=== PATIENT | female | born 1975 | race Caucasian/White ===

== ENCOUNTER 2016-09-27 09:32 | Emergency (ER) | payer OTHER ==
[~2016-09-27] VITALS: Ht 162.6 cm; Wt 97.0 kg
[~2016-09-27 09:32] MED LIST: AMIT25TA9 PO; CLON1TAB PO; GLIM4TAB PO; LEVO125T4 PO; TOPA50TA7 PO; ZOLO100T PO
[2016-09-27 09:38] VITALS: BP 141/101; PULSE 108; RESP 17; TEMP 98.4; O2SAT 98
[2016-09-27 11:21] LABS: BLOOD, URINE TRACE (NEG); KETONE, URINE NEG (NEG); NITRITE,URINE NEG (NEG)
[2016-09-27 11:28] LABS: GLUCOSE,URINE 1000 OR GREATER mg/dL (NEG)
[2016-09-27 11:29] LABS: METHOD OF COLLECTION CLEAN CATCH; URINE COLOR YELLOW (YELLW/STRAW)
[2016-09-27 11:30] LABS: COMMENT (UR) CULT NOT INDICATED; CULTURE IF INDICATED CULT NOT INDICATED; RBC, URINE 0-3 /hpf (0-3); SQUAMOUS EPITHELIAL CELL URINE 0-5 /hpf (0-5)
[2016-09-27] MEDS ORDERED: SODIUM CHLOR 0.9% 1000 ML INJ 1,000 ML IV ONE ×2 (11:56→12:26)
--- NOTE | 2016-09-27 11:59 | PD ---
HPI Chief Complaint: Diabetic Time Seen by Provider: 11:50 Travel History International Travel<30 days: No Contact w/Intl Traveler<30days: No Traveled to known affect area: No History of Present Illness HPI 40-year-old female with history of diabetes, on glipizide and insulin, not completely compliant with insulin because she does not like the way it makes her feel, here for evaluation of possible dehydration, possible DKA. The patient states that for the last 2 months she has been feeling as though she is dehydrated. She has been trying to stay hydrated by drinking plenty of water. She was seen in the emergency Department in August 2016, diagnosed with DKA, but told me that she could not stay at that time because she has anxiety and was having a panic attack. She is having some shortness of breath and cough which is been intermittent. No fevers or chills. No nausea or vomiting. No abdominal pain. Bedside glucose at time of assessment was 306. PFSH Past Medical History Hx Anticoagulant Therapy: No Arthritis: No Asthma: Yes (exercise induced) Autoimmune Disease: No Anxiety: Yes Depression: Yes Heart Rhythm Problems: No Cancer: No Cardiovascular Problems: Yes High Cholesterol: Yes Chemotherapy: No Chest Pain: No Congestive Heart Failure: No COPD: No Cerebrovascular Accident: No Diabetes: Yes Diminished Hearing: No Endocrine: Yes Gastrointestinal Disorders: Yes (IBS) GERD: No Glaucoma: No Genitourinary: Yes Headaches: Yes Hepatitis: No Hiatal Hernia: No Hypertension: No Immune Disorder: No Inguinal Hernia: Yes (LEFT HERNIA) Implanted Vascular Access Dvce: No Musculoskeletal: No Neurologic: Yes Psychiatric: Yes Reproductive: Yes Respiratory: Yes Immunizations Current: Yes Migraines: No Renal Failure: No Seizures: No Sleep Apnea: No Thyroid Disease: Yes (hypothyroid) Ulcer: No PNEUMOCCOCAL Vaccine (Year): 2 Menopausal: No : 2 Para: 2 Ovarian Cysts: Yes Past Surgical History Abdominal Surgery: Yes (Hernia repair) AICD: No Arteriovenous Shunt: No Cardiac Surgery: No Section: Yes (x2) Cholecystectomy: Yes Ear Surgery: No Endocrine Surgery: No Eye Surgery: No Genitourinary Surgery: No Gynecologic Surgery: Yes (Endometrial Ablation) Hysterectomy: No Insulin Pump: No Joint Replacement: No Neurologic Surgery: No Oral Surgery: Yes ([place] teeth) Pacemaker: No Thoracic Surgery: No Other Surgery: Yes (HERNIA REPAIR) Social History Alcohol Use: No Tobacco Use: No (Quit 10 years ago) Substance Use: No Allergies-Medications (Allergen,Severity, Reaction): Coded Allergies: Penicillin (Verified Allergy, Severe, NERVOUS FEELING AND SWELLING, ) Shrimp (Verified Allergy, Severe, MOUTH QUINTANILLA, 09/27/16) Sulfa (Verified Allergy, Severe, HIVES AND NERVOUS FEELING, 09/27/16) Ativan (Verified Allergy, Unknown, UNKNOWN, 09/27/16) Morphine (Verified Adverse Reaction, Severe, LETHARGIC, 09/27/16) Reported Meds & Prescriptions Reported Meds & Active Scripts Active Reported Klonopin (Clonazepam) 2 Mg Tab 2 Mg PO DAILY Amitriptyline (Amitriptyline HCl) 25 Mg Tab 25 Mg PO HS Glimepiride 4 Mg Tab 4 Mg PO BID Take with breakfast or first main meal Topamax (Topiramate) 50 Mg Tab 200 Mg PO DAILY Levothyroxine (Levothyroxine Sodium) 125 Mcg Tab 125 Mcg PO DAILY Zoloft (Sertraline HCl) 100 Mg Tab 200 Mg PO DAILY Review of Systems Except as stated in HPI: all other systems reviewed are Neg Physical Exam Narrative GENERAL: Well-developed, well-nourished, overweight, no acute distress. SKIN: Warm and dry. No rash. HEAD: Atraumatic. Normocephalic. EYES: Pupils equal and round. No scleral icterus. No injection or drainage. ENT: Mucous membranes pink and dry. NECK: Trachea midline. No JVD. CARDIOVASCULAR: Regular rate and rhythm. RESPIRATORY: No accessory muscle use. Clear to auscultation. Breath sounds equal bilaterally. GASTROINTESTINAL: Abdomen soft, non-tender, nondistended. MUSCULOSKELETAL: No obvious deformities. No clubbing. No cyanosis. No edema. NEUROLOGICAL: Awake and alert. No obvious cranial nerve deficits. Motor grossly within normal limits. Normal speech. PSYCHIATRIC: Appropriate mood and affect; insight and judgment normal. Data Data Last Documented VS Vital Signs Date Time Temp Pulse Resp B/P Pulse Ox O2 Delivery O2 Flow Rate FiO2 09/27/16 12:02 98 Room Air 09/27/16 09:38 98.4 108 17 141/101 Orders Urinalysis - C+S If Indicated (09/27/16 11:13) Ed Urine Pregnancytest Poc (09/27/16 11:13) Complete Blood Count With Diff (1/26/17 11:56) Comprehensive Metabolic Panel (09/27/16 11:56) Beta Hydroxybutyrate (Acetone) (09/27/16 11:56) Chest, Single Ap (09/27/16 11:56) Ecg Monitoring (09/27/16 11:56) Iv Access Insert/Monitor (09/27/16 11:56) Oximetry (09/27/16 11:56) NPO (09/27/16 11:56) Sodium Chlor 0.9% 1000 Ml Inj (Ns 1000 M (09/27/16 11:56) Sodium Chlor 0.9% 1000 Ml Inj (Ns 1000 M (09/27/16 12:26) Sodium Chloride 0.9% Flush (Ns Flush) (09/27/16 12:00) Beta Hcg (Quant/Titer) (09/27/16 11:56) Influenzae A/B Antigen (09/27/16 11:56) Blood Gas Venous (Vbg) (09/27/16 11:59) Insulin Human Regular Inj (Novolin R Inj (09/27/16 12:45) Labs Laboratory Tests Test 09/27/16 09/27/16 09/27/16 11:08 12:18 12:19 Urine Collection Type CLEAN CATCH Urine Color YELLOW Urine Turbidity CLEAR Urine pH 7.0 Urine Specific [place] 1.032 Urine Protein NEG mg/dL Urine Glucose (UA) 1000 OR GREATER mg/dL Urine Ketones NEG mg/dL Urine Occult Blood TRACE Urine Nitrite NEG Urine Bilirubin NEG Urine Leukocyte Esterase NEG Urine RBC 0-3 /hpf Urine Squamous Epithelial 0-5 /hpf Cells Microscopic Urinalysis Comment CULT NOT INDICATED Urine Collection Time 11:08 White Blood Count 8.3 TH/MM3 Red Blood Count 4.89 MIL/MM3 Hemoglobin 15.5 GM/DL Hematocrit 45.7 % Mean Corpuscular Volume 93.4 FL Mean Corpuscular Hemoglobin 31.6 PG Mean Corpuscular Hemoglobin 33.8 % Concent Red Cell Distribution Width 12.5 % Platelet Count 410 TH/MM3 Mean Platelet Volume 7.4 FL Neutrophils (%) (Auto) 63.4 % Lymphocytes (%) (Auto) 27.6 % Monocytes (%) (Auto) 5.1 % Eosinophils (%) (Auto) 2.7 % Basophils (%) (Auto) 1.2 % Neutrophils # (Auto) 5.3 TH/MM3 Lymphocytes # (Auto) 2.3 TH/MM3 Monocytes # (Auto) 0.4 TH/MM3 Eosinophils # (Auto) 0.2 TH/MM3 Basophils # (Auto) 0.1 TH/MM3 CBC Comment DIFF FINAL Differential Comment Sodium Level 139 MEQ/L Potassium Level 3.7 MEQ/L Chloride Level 105 MEQ/L Carbon Dioxide Level 23.2 MEQ/L Anion Gap 11 MEQ/L Blood Urea Nitrogen 8 MG/DL Creatinine 0.71 MG/DL Estimat Glomerular Filtration 90 ML/MIN Rate Random Glucose 317 MG/DL Calcium Level 8.4 MG/DL Total Bilirubin 0.4 MG/DL Aspartate Amino Transf 12 U/L (AST/SGOT) Alanine Aminotransferase 25 U/L (ALT/SGPT) Alkaline Phosphatase 123 U/L Total Protein 7.5 GM/DL Albumin 3.4 GM/DL Human Chorionic Gonadotropin, LESS THAN 1 Quant MIU/ML B-Hydroxybutyrate 0.66 MMOL/L Blood Gas Puncture Site IV Blood Gas Patient Temperature 98.6 Venous Blood pH 7.35 Venous Blood Partial Pressure 43 mmHg CO2 Venous Blood Partial Pressure 32 mmHg O2 Venous Blood HCO3 23 mmol/L Venous Blood Oxygen Saturation 59 % Venous Blood Oxygen Content 12.5 Vol % Venous Blood Base Excess -1.6 mmol/L Oxygen Delivery Device ROOM AIR Blood Gas Inspired Oxygen 21 % [facility] Medical Decision Making Medical Screen Exam Complete: Yes Emergency Medical Condition: Yes Medical Record Reviewed: Yes Differential Diagnosis DKA, dehydration, hyperglycemia, medication noncompliance, pneumonia, influenza Narrative Course Initial vital signs show heart rate 108, blood pressure 141/101, pulse ox 98% on room air, oral temp of 98.4F. After 1 L of IV fluids patient's heart rate improved to 93. CBC is unremarkable. CMP is remarkable for random glucose 317. Her bicarbonate is 23.2. She is not in DKA. UA shows 1000 or greater glucose, trace occult blood, negative ketones. Beta hCG is negative. Beta hydroxybutyrate is 0.66. Venous blood gas shows a pH of 7.35. Influenza is negative. Chest x-ray: No acute disease. Patient was given 2 L of IV fluids and 6 units of IV insulin. She is resting comfortably. She was made aware of all findings. She is not in DKA. She is stable for discharge home with outpatient follow-up with a primary care physician this week. She was informed on when to return to the emergency department. She verbalizes understanding and agreement with plan. Diagnosis Primary Impression: Hyperglycemia Referrals: Primary Care Physician 3 days Additional Instructions: Follow-up with a primary care physician this week. Take your medications as prescribed. Return to the emergency department for worsening symptoms or any other concerns. Disposition: 01 DISCHARGE HOME Condition: Stable Gurvinder Maki MD Sep 27, 2016 11:59
[2016-09-27] MEDS ORDERED: SODIUM CHLORIDE 0.9% FLUSH 5 ML FLUSH IVF PRN (12:00)
[2016-09-27 12:02] VITALS: O2SAT 98
[2016-09-27] MEDS ORDERED: KLON2TAB PO (12:12)
[2016-09-27 12:22] LABS: BLOOD GAS VENOUS BASE EXCESS -1.6 mmol/L (-2-2); BLOOD GAS VENOUS HCO3 23 mmol/L (22-26); BLOOD GAS VENOUS O2 CONTENT 12.5 Vol % (9.0-17.0); BLOOD GAS VENOUS O2 HGB SAT 59 % (70-76); BLOOD GAS VENOUS PCO2 43 mmHg (44-48); BLOOD GAS VENOUS PO2 32 mmHg (35-40); BLOOD GAS VENOUS pH 7.35 (7.360-7.400); CRITICAL VALUE NO; DRAW SITE IV; FIO2 21 %; OXYGEN DEVICE ROOM AIR; STAT YES; TEMP CORR TO 98.6
[2016-09-27 12:26] LABS: AUTOMATED NEUTROPHIL # 5.3 TH/MM3 (1.8-7.7); BASOPHIL # 0.1 TH/MM3 (0-0.2); BASOPHIL % 1.2 % (0.0-2.0); EOSINOPHIL # 0.2 TH/MM3 (0-0.4); EOSINOPHIL % 2.7 % (0.0-4.0); HEMATOCRIT 45.7 % (35.0-46.0); HEMO FLAGS DIFF FINAL; LYMPH % 27.6 % (9.0-44.0); LYMPHOCYTE # 2.3 TH/MM3 (1.0-4.8); MEAN CELL VOLUME 93.4 FL (80.0-100.0); MEAN CORPUSCULAR HEMOGLOBIN 31.6 PG (27.0-34.0); MEAN CORPUSCULAR HGB CONC 33.8 % (32.0-36.0); MONO % 5.1 % (0.0-8.0); NEUT % 63.4 % (16.0-70.0); PLATELET COUNT 410 TH/MM3 (150-450); RED BLOOD COUNT 4.89 MIL/MM3 (4.00-5.30); RED CELL DISTRIBUTION WIDTH 12.5 % (11.6-17.2); WHITE BLOOD COUNT 8.3 TH/MM3 (4.0-11.0)
[2016-09-27 12:33] LABS: CHLORIDE 105 MEQ/L (98-107); POTASSIUM 3.7 MEQ/L (3.5-5.1); SODIUM (NA) 139 MEQ/L (136-145)
[2016-09-27 12:36] LABS: ANION GAP 11 MEQ/L (5-15); BICARBONATE 23.2 MEQ/L (21.0-32.0)
[2016-09-27 12:37] LABS: BLOOD UREA NITROGEN 8 MG/DL (7-18)
[2016-09-27 12:40] LABS: ALT (GPT) 25 U/L (10-53); AST (GOT) 12 U/L (15-37); GLOMERULAR FILTRATION RATE 90 ML/MIN (>89)
[2016-09-27 12:41] LABS: TOTAL BILIRUBIN ADULT 0.4 MG/DL (0.2-1.0)
[2016-09-27 12:43] LABS: ALKALINE PHOSPHATASE 123 U/L (45-117)
[2016-09-27 12:45] LABS: BETA HCG QUANT LESS THAN 1 MIU/ML (0-5)
[2016-09-27] MEDS ORDERED: INSULIN HUMAN REGULAR 1,000 UNITS/10 ML VIAL IVP ONE (12:45)
[2016-09-27 12:50] LABS: BETA-HYDROXYBUTYRATE 0.66 MMOL/L (0.00-0.39)
--- NOTE | 2016-09-27 12:52 | RADHPO ---
EXAM DATE/TIME: 09/27/2016 12:33 [facility] COMPARISON: CHEST SINGLE AP, February 25, 2016, 17:59. INDICATIONS : Cough, short of breath. MEDICAL HISTORY : None. SURGICAL HISTORY : None. ENCOUNTER: Initial ACUITY: 1 week PAIN SCORE: 0/10 LOCATION: Bilateral chest FINDINGS: Portable AP view of the chest demonstrates a normal-sized cardiac silhouette. No effusion, consolidat ion, or pneumothorax is visualized. The bones and soft tissues demonstrate no acute abnormality. CONCLUSION: No acute cardiopulmonary abnormality is identified. Aftab Kingsley MD on September 27, 2016 at 12:49 Board Certified Radiologist. This report was verified electronically.
[2016-09-27 13:29] VITALS: BP 166/92
[2016-11-07] MEDS ORDERED: ACYC400T PO (14:22)
[2016-11-07] MEDS ORDERED: DIFL150T PO (14:48)
[2016-11-07] MEDS ORDERED: ACYC800T PO (14:49)
[2017-01-04] MEDS ORDERED: DIFL150T PO (12:07)
[2017-01-10] MEDS ORDERED: ACYC800T PO (16:09)
[2017-02-07] MEDS ORDERED: CYCL1TAB29 PO (11:33)
== END 2016-09-27 13:32 | disposition home or self-care (01) ==
LOC: PHED 09:32
DX: E11.65 Type 2 diabetes mellitus with hyperglycemia (principal); F41.8 Other specified anxiety disorders; E78.00 Pure hypercholesterolemia, unspecified; Z79.4 Long term (current) use of insulin; K58.9 Irritable bowel syndrome, unspecified; E03.9 Hypothyroidism, unspecified
CPT/HCPCS: 71010; 80053; 81001; 82010; 82805; 84702; 84703; 85025; 87804; 96361; 96374; 99284; J1815; J7030

== ENCOUNTER 2016-10-05 12:17 | Observation (INO) | payer OTHER ==
[~2016-10-05] VITALS: Ht 162.6 cm; Wt 91.0 kg
[~2016-10-05 12:17] MED LIST changes: -CLON1TAB PO; +KLON2TAB PO
[2016-10-05 12:38] VITALS: BP 164/103; PULSE 101; RESP 18; TEMP 99.1; O2SAT 98
[2016-10-05] MEDS ORDERED: SODIUM CHLOR 0.9% 1000 ML INJ 1,000 ML IV SCH (12:41)
[2016-10-05] MEDS ORDERED: SODIUM CHLORIDE 0.9% FLUSH 5 ML FLUSH IVF PRN (12:45)
--- NOTE | 2016-10-05 12:46 | PD ---
HPI Chief Complaint: Neuro Symptoms/ Deficits Time Seen by Provider: 12:35 Travel History International Travel<30 days: No Contact w/Intl Traveler<30days: No Traveled to known affect area: No History of Present Illness HPI 40-year-old female with history of poorly controlled insulin-dependent diabetes , anxiety, hypothyroidism, hyperlipidemia presents via EMS for evaluation. She reports that this morning at 10:45 AM she was at work at a recycling plant. She reports that she began having a twitching sensation in her right eyelid and left side of her face. She then felt uncoordinated when using her hands to reach out to grab objects. She then felt uncoordinated when trying to walk down some stairs. Symptoms lasted total of 15 minutes and then resolved. She says that she feels normal now. She is concerned that she may have had a TIA or CVA. She's never had these sorts of symptoms before. She does also note that recently her psychiatrist changed her dosing of Topamax from 100 mg BID to 150 mg BID 2 days ago and she is concerned that this could be a side effect of the medication change. She denies any palpitation, chest pain, shortness of breath. Denies any recent illness. She has no other complaints at this time. PFSH Past Medical History Hx Anticoagulant Therapy: No Arthritis: No Asthma: Yes (exercise induced) Autoimmune Disease: No Anxiety: Yes Depression: Yes Heart Rhythm Problems: No Cancer: No Cardiovascular Problems: Yes High Cholesterol: Yes Chemotherapy: No Chest Pain: No Congestive Heart Failure: No COPD: No Cerebrovascular Accident: No Diabetes: Yes Diminished Hearing: No Endocrine: Yes Gastrointestinal Disorders: Yes (IBS) GERD: No Glaucoma: No Genitourinary: Yes Headaches: Yes Hepatitis: No Hiatal Hernia: No Hypertension: No Immune Disorder: No Inguinal Hernia: Yes (LEFT HERNIA) Implanted Vascular Access Dvce: No Musculoskeletal: No Neurologic: Yes Psychiatric: Yes Reproductive: Yes Respiratory: Yes Immunizations Current: Yes Migraines: No Renal Failure: No Seizures: No Sleep Apnea: No Thyroid Disease: Yes (hypothyroid) Ulcer: No PNEUMOCCOCAL Vaccine (Year): 2 Menopausal: No : 2 Para: 2 Ovarian Cysts: Yes Past Surgical History Abdominal Surgery: Yes (Hernia repair) AICD: No Arteriovenous Shunt: No Cardiac Surgery: No Section: Yes (x2) Cholecystectomy: Yes Ear Surgery: No Endocrine Surgery: No Eye Surgery: No Genitourinary Surgery: No Gynecologic Surgery: Yes (Endometrial Ablation) Hysterectomy: No Insulin Pump: No Joint Replacement: No Neurologic Surgery: No Oral Surgery: Yes ([place] teeth) Pacemaker: No Thoracic Surgery: No Other Surgery: Yes (HERNIA REPAIR) Social History Alcohol Use: No Tobacco Use: No (Quit 10 years ago) Substance Use: No Allergies-Medications (Allergen,Severity, Reaction): Coded Allergies: Penicillin (Verified Allergy, Severe, NERVOUS FEELING AND SWELLING, ) Shrimp (Verified Allergy, Severe, MOUTH QUINTANILLA, 09/27/16) Sulfa (Verified Allergy, Severe, HIVES AND NERVOUS FEELING, 09/27/16) Ativan (Verified Allergy, Unknown, UNKNOWN, 09/27/16) Morphine (Verified Adverse Reaction, Severe, LETHARGIC, 09/27/16) Reported Meds & Prescriptions Reported Meds & Active Scripts Active Reported Klonopin (Clonazepam) 2 Mg Tab 2 Mg PO DAILY Amitriptyline (Amitriptyline HCl) 25 Mg Tab 25 Mg PO HS Glimepiride 4 Mg Tab 4 Mg PO BID Take with breakfast or first main meal Topamax (Topiramate) 50 Mg Tab 200 Mg PO DAILY Levothyroxine (Levothyroxine Sodium) 125 Mcg Tab 125 Mcg PO DAILY Zoloft (Sertraline HCl) 100 Mg Tab 200 Mg PO DAILY Review of Systems Except as stated in HPI: all other systems reviewed are Neg Physical Exam Narrative GENERAL: Well-developed well-nourished female in no acute distress SKIN: Warm and dry. HEAD: Atraumatic. Normocephalic. EYES: Pupils equal and round. No scleral icterus. No injection or drainage. ENT: No nasal bleeding or discharge. Mucous membranes pink and moist. NECK: Trachea midline. No JVD. CARDIOVASCULAR: Regular rate and rhythm. No murmur appreciated. RESPIRATORY: No accessory muscle use. Clear to auscultation. Breath sounds equal bilaterally. GASTROINTESTINAL: Abdomen soft, non-tender, nondistended. MUSCULOSKELETAL: No obvious deformities. No clubbing. No cyanosis. No edema. NEUROLOGICAL: Awake and alert. No obvious cranial nerve deficits. Motor grossly within normal limits. Normal speech. Normal finger-nose, heel to sierra. NIHSS 0. PSYCHIATRIC: Appropriate mood and affect; insight and judgment normal. Data Data Last Documented VS Vital Signs Date Time Temp Pulse Resp B/P Pulse Ox O2 Delivery O2 Flow Rate FiO2 10/05/16 12:47 97 Room Air 10/05/16 12:38 18 10/05/16 12:38 99.1 101 164/103 Orders Electrocardiogram (10/05/16 12:41) Prothrombin Time / Inr (Pt) (10/05/16 12:41) Act Partial Throm Time (Ptt) (10/05/16 12:41) Complete Blood Count With Diff (10/05/16 12:41) Basic Metabolic Panel (Bmp) (10/05/16 12:41) Ct Brain W/O Iv Contrast(Rout) (10/05/16 12:41) Ecg Monitoring (10/05/16 12:41) Iv Access Insert/Monitor (10/05/16 12:41) Oximetry (10/05/16 12:41) Blood Glucose (10/05/16 12:41) Sodium Chloride 0.9% Flush (Ns Flush) (10/05/16 12:45) Ed Urine Pregnancytest Poc (10/05/16 12:41) Sodium Chlor 0.9% 1000 Ml Inj (Ns 1000 M (10/05/16 12:41) Magnesium (Mg) (10/05/16 12:41) Insulin Human Regular Inj (Novolin R Inj (10/05/16 14:00) Admit Order (Ed Use Only) (10/05/16 14:51) Labs Laboratory Tests Test 10/05/16 13:06 White Blood Count 10.1 TH/MM3 Red Blood Count 4.95 MIL/MM3 Hemoglobin 16.3 GM/DL Hematocrit 46.4 % Mean Corpuscular Volume 93.7 FL Mean Corpuscular Hemoglobin 32.9 PG Mean Corpuscular Hemoglobin 35.1 % Concent Red Cell Distribution Width 13.3 % Platelet Count 329 TH/MM3 Mean Platelet Volume 8.1 FL Neutrophils (%) (Auto) 60.1 % Lymphocytes (%) (Auto) 29.4 % Monocytes (%) (Auto) 6.1 % Eosinophils (%) (Auto) 2.8 % Basophils (%) (Auto) 1.6 % Neutrophils # (Auto) 6.1 TH/MM3 Lymphocytes # (Auto) 3.0 TH/MM3 Monocytes # (Auto) 0.6 TH/MM3 Eosinophils # (Auto) 0.3 TH/MM3 Basophils # (Auto) 0.2 TH/MM3 CBC Comment DIFF FINAL Differential Comment Prothrombin Time 10.8 SEC Prothromb Time International 1.0 RATIO Ratio Activated Partial 23.4 SEC Thromboplast Time Sodium Level 135 MEQ/L Potassium Level 4.4 MEQ/L Chloride Level 103 MEQ/L Carbon Dioxide Level 21.0 MEQ/L Anion Gap 11 MEQ/L Blood Urea Nitrogen 8 MG/DL Creatinine 0.81 MG/DL Estimat Glomerular Filtration 78 ML/MIN Rate Random Glucose 367 MG/DL Calcium Level 8.8 MG/DL Magnesium Level 2.1 MG/DL MDM Medical Decision Making Medical Screen Exam Complete: Yes Emergency Medical Condition: Yes Medical Record Reviewed: Yes Interpretation(s) EKG sinus rhythm, there are T wave inversions in the anterior and lateral leads. CBC hemoglobin 16.3 otherwise unremarkable BMP glucose [address] brain no acute abnormalities Differential Diagnosis Medication adverse effect, electrolyte abnormality, hypoglycemia, TIA, CVA Narrative Course IV established, basic lab work has been ordered and interpreted, CT of the brain has been ordered. The patient's primary concern is that her symptoms were suggestive of a TIA. She has no residual neurologic symptoms at the time of the examination. Discussed with my attending who agrees with plan of care. The patient's lab work has been reviewed. She is noted be hyperglycemic. She was given IV fluids and a bolus of insulin. She is agreeable to be admitted for observation. Discussed with the residents who are agreeable with admission to Dr. Montano. Procedures EKG Prior to Arrival: Yes Diagnosis Primary Impression: TIA (transient ischemic attack) Qualified Code: G45.9 - Transient cerebral ischemia, unspecified type Admitting Information Admitting Physician Requests: Observation Jamshid Briceño Oct 05, 2016 12:45
[2016-10-05 12:47] VITALS: O2SAT 97
[2016-10-05 13:24] LABS: AUTOMATED NEUTROPHIL # 6.1 TH/MM3 (1.8-7.7); BASOPHIL # 0.2 TH/MM3 (0-0.2); BASOPHIL % 1.6 % (0.0-2.0); EOSINOPHIL # 0.3 TH/MM3 (0-0.4); EOSINOPHIL % 2.8 % (0.0-4.0); HEMATOCRIT 46.4 % (35.0-46.0); HEMO FLAGS DIFF FINAL; LYMPH % 29.4 % (9.0-44.0); MEAN CELL VOLUME 93.7 FL (80.0-100.0); MEAN CORPUSCULAR HEMOGLOBIN 32.9 PG (27.0-34.0); MEAN CORPUSCULAR HGB CONC 35.1 % (32.0-36.0); MONO % 6.1 % (0.0-8.0); NEUT % 60.1 % (16.0-70.0); PLATELET COUNT 329 TH/MM3 (150-450); RED BLOOD COUNT 4.95 MIL/MM3 (4.00-5.30); RED CELL DISTRIBUTION WIDTH 13.3 % (11.6-17.2); WHITE BLOOD COUNT 10.1 TH/MM3 (4.0-11.0)
[2016-10-05 13:36] LABS: PROTHROMBIN TIME - PATIENT 10.8 SEC (9.8-11.6)
[2016-10-05 13:38] LABS: APTT (PATIENT) 23.4 SEC (24.3-30.1)
[2016-10-05 13:46] LABS: MAGNESIUM 2.1 MG/DL (1.5-2.5); POTASSIUM 4.4 MEQ/L (3.5-5.1)
[2016-10-05] MEDS ORDERED: INSULIN HUMAN REGULAR 1,000 UNITS/10 ML VIAL IVP ONE (14:00)
--- NOTE | 2016-10-05 14:30 | RADRPT ---
EXAM DATE/TIME: 10/05/2016 13:36 [facility] COMPARISON: CT BRAIN W/O CONTRAST, December 03, 2010, 18:16. INDICATIONS : Twitching right eyelid and left side of face. RADIATION DOSE: 52.91 CTDIvol (mGy) MEDICAL HISTORY : Cardiovascular disease. Diabetes mellitus type 2. Hypothyroidism. SURGICAL HISTORY : None. ENCOUNTER: Initial ACUITY: 1 day PAIN SCALE: 0/10 LOCATION: cranial TECHNIQUE: Multiple contiguous axial images were obtained of the head. Using automated exposure control and adj ustment of the mA and/or kV according to patient size, radiation dose was kept as low as reasonably a chievable to obtain optimal diagnostic quality images. FINDINGS: CEREBRUM: The ventricles are normal for age. No evidence of midline shift, mass lesion, hemorrhage or acute in farction. No extra-axial fluid collections are seen. POSTERIOR FOSSA: The cerebellum and brainstem are intact. The 4th ventricle is midline. The cerebellopontine angle i s unremarkable. EXTRACRANIAL: The visualized portion of the orbits is intact. SKULL: The calvaria is intact. No evidence of skull fracture. CONCLUSION: No acute disease. No significant change has occurred. Himanshu Frias MD on October 05, 2016 at 14:28 Board Certified Radiologist. This report was verified electronically.
--- NOTE | 2016-10-05 15:16 | PD.AMA ---
Against Medical Advice Note Discharge Disposition: Against Medical Advice Pt Condition on Discharge: Fair AMA Statement Patient Jaylin Ramirez has decided to leave the hospital against medical advice. This patient has the capacity to refuse care and understands the risks of leaving, including permanent disability and/or , and has had an opportunity to ask questions about her condition. The patient has been informed that she may return for care at any time, and follow up has been arranged/ advised. Wolfgang Swan MD R1 Oct 05, 2016 15:16
[2016-10-05 15:26] VITALS: BP 167/90; PULSE 92; RESP 18; O2SAT 98
--- NOTE | 2016-10-05 15:35 | HHI.HP ---
HPI Service Family Medicine Primary Care Physician No Primary Care Physician Admission Diagnosis transient ischemic attack Diagnoses: International Travel<30 Days: No Contact w/Intl Traveler<30days: No Known Affected Area: No History of Present Illness This is a 40-year-old female with past, history consistent of type 2 diabetes, anxiety, hypothyroidism, and hyperlipidemia she presented via EMS to the ED for episode of twitching of the face. She states that she was at work this morning at around 10:45 AM at the [employer] plant when she started having this twitching sensation of her right eye and left side of her face. Then her hands felt uncoordinated and she was unable to grab objects correctly. As she tried to walk away from her workstation she felt very dizzy and unbalanced with poor coordination throughout her body. She said that the symptoms lasted for 15 minutes and then completely resolved. By the time the ambulance arrived she is back to baseline and continued to be baseline even upon arriving the ED. Throughout ED admission at time of evaluation she felt like she was back to normal. She is concerned that she might have had a TIA or CVA, but thinks that she recovered completely. Denies ever having similar symptoms in the past, however recently had her Topamax dose increased to 300 mg a day and thinks that she might be having a side effect from that. At time of admission she decided to leave it the hospital without being admitted, once she was informed that if that was the case she would have to be discharged AMA she then decided she'll stay the night. (Jorge Weiner MD R2) Review of Systems Constitutional: COMPLAINS OF: Dizziness, DENIES: Fever, Weight gain, Weight loss, Change in appetite Eyes: DENIES: Blurred vision, Vision loss, Double Vision Ears, nose, mouth, throat: DENIES: Tinnitus, Hearing loss, Oral lesions, Throat pain, Hoarseness, Running Nose Respiratory: DENIES: Cough, Wheezing, Sputum production, Shortness of breath Cardiovascular: DENIES: Chest pain, Syncope, Dyspnea on Exertion, Lower Extremity Edema Gastrointestinal: DENIES: Abdominal pain, Nausea, Vomiting Genitourinary: DENIES: Urinary frequency, Urinary incontinence Musculoskeletal: DENIES: Joint pain, Stiffness, Joint Swelling, Back pain Integumentary: DENIES: Pruritus, Rash Hematologic/lymphatic: DENIES: Bruising Immunologic/allergic: DENIES: Eczema Neurologic: COMPLAINS OF: Abnormal gait, Localized weakness, Poor Balance, DENIES: Headache, Seizures, Speech Problems, Tremor Psychiatric: DENIES: Anxiety, Depression (Jorge Weiner MD R2) Past Family Social History Past Medical History Type II DM Hypothyroid Anxiety (Panic Disorder) Past Surgical History Cholecystectomy 2 C-sections Hernia repair Endometrial ablation Reported Medications Reported Meds & Active Scripts Active Reported Klonopin (Clonazepam) 2 Mg Tab 2 Mg PO DAILY Amitriptyline (Amitriptyline HCl) 25 Mg Tab 25 Mg PO HS Glimepiride 4 Mg Tab 4 Mg PO BID Take with breakfast or first main meal Topamax (Topiramate) 50 Mg Tab 300 Mg PO DAILY Levothyroxine (Levothyroxine Sodium) 125 Mcg Tab 125 Mcg PO DAILY Zoloft (Sertraline HCl) 100 Mg Tab 200 Mg PO DAILY (Jorge Weiner MD R2) Allergies: Coded Allergies: Penicillin (Verified Allergy, Severe, NERVOUS FEELING AND SWELLING, ) Shrimp (Verified Allergy, Severe, MOUTH QUINTANILLA, 09/27/16) Sulfa (Verified Allergy, Severe, HIVES AND NERVOUS FEELING, 09/27/16) Ativan (Verified Allergy, Unknown, UNKNOWN, 09/27/16) Morphine (Verified Adverse Reaction, Severe, LETHARGIC, 09/27/16) Family History Father with DM, recent CABG, HTN, Necrotizing fascitis Social History [place] in an apartment with 12 year old son Work at [employer], but schooling as registered nurse Pet dog and 2 cats Former smoker 4 cigarettes a day for 10 years Social alcohol once a month Denies illegal drugs (Jorge Weiner MD R2) Physical Exam Vital Signs Vital Signs Date Time Temp Pulse Resp B/P Pulse Ox O2 Delivery O2 Flow Rate FiO2 10/05/16 12:47 97 Room Air 10/05/16 12:38 18 Room Air 10/05/16 12:38 99.1 101 18 164/103 98 Room Air Physical Exam GENERAL: This is a well-nourished, well-developed patient, in no apparent distress. SKIN: No rashes, ecchymoses or lesions. Cool and dry. HEAD: Atraumatic. Normocephalic. No temporal or scalp tenderness. EYES: Pupils equal round and reactive. Extraocular motions intact. No scleral icterus. No injection or drainage. ENT: Nose without bleeding, purulent drainage or septal hematoma. Throat without erythema, tonsillar hypertrophy or exudate. Uvula midline. Airway patent. NECK: Trachea midline. No JVD or lymphadenopathy. Supple, nontender, no meningeal signs. CARDIOVASCULAR: Regular rate and rhythm without murmurs, gallops, or rubs. RESPIRATORY: Clear to auscultation. Breath sounds equal bilaterally. No wheezes , rales, or rhonchi. GASTROINTESTINAL: Abdomen soft, non-tender, nondistended. No hepato-splenomegaly , or palpable masses. No guarding. MUSCULOSKELETAL: Extremities without clubbing, cyanosis, or edema. No joint tenderness, effusion, or edema noted. No calf tenderness. Negative Homans sign bilaterally. NEUROLOGICAL: Awake and alert. Cranial nerves II through XII intact. Motor and sensory grossly within normal limits. Five out of 5 muscle strength in all muscle groups. Normal speech. Normal finger to nose, normal [id number] no cerebral defect signs, sensation intact throughout. Laboratory Laboratory Tests Test 10/05/16 13:06 White Blood Count 10.1 Red Blood Count 4.95 Hemoglobin 16.3 Hematocrit 46.4 Mean Corpuscular Volume 93.7 Mean Corpuscular Hemoglobin 32.9 Mean Corpuscular Hemoglobin 35.1 Concent Red Cell Distribution Width 13.3 Platelet Count 329 Mean Platelet Volume 8.1 Neutrophils (%) (Auto) 60.1 Lymphocytes (%) (Auto) 29.4 Monocytes (%) (Auto) 6.1 Eosinophils (%) (Auto) 2.8 Basophils (%) (Auto) 1.6 Neutrophils # (Auto) 6.1 Lymphocytes # (Auto) 3.0 Monocytes # (Auto) 0.6 Eosinophils # (Auto) 0.3 Basophils # (Auto) 0.2 CBC Comment DIFF FINAL Differential Comment Prothrombin Time 10.8 Prothromb Time International 1.0 Ratio Activated Partial 23.4 Thromboplast Time Sodium Level 135 Potassium Level 4.4 Chloride Level 103 Carbon Dioxide Level 21.0 Anion Gap 11 Blood Urea Nitrogen 8 Creatinine 0.81 Estimat Glomerular Filtration 78 Rate Random Glucose 367 Calcium Level 8.8 Magnesium Level 2.1 (Jorge Weiner MD R2) Result Diagram: 10/05/16 1306 10/05/16 1306 Imaging Last Impressions Head CT 10/05/16 1241 Signed Impressions: Service Date/Time: Wednesday, October 05, 2016 13:36 - CONCLUSION: No acute disease. No significant change has occurred. Himanshu Frias MD (Jorge Weiner MD R2) Assessment and Plan Assessment and Plan This is a 40-year-old female with past, history consistent of type 2 diabetes, anxiety, hypothyroidism, and hyperlipidemia being admitted observation for anxiety versus migraine versus TIA. Code Status Full code Discussed Condition With SDW: Dr. Swan WDW: Dr. Montano (Jorge Weiner MD R2) Attending Attestation THIS CASE WAS DISCUSSED WITH THE RESIDENT PHYSICIAN. I HAVE REVIEWED THE RECORD AND AGREE WITH THE ABOVE NOTE AND PLAN OF CARE WAS DISCUSSED. I HAVE AUTHORIZED THE ORDER FOR PLACEMENT IN OUT-PATIENT OBSERVATION STATUS. (Yasmani Montano MD) Problem List: (1) TIA (transient ischemic attack) Status: Acute Plan: Patient is being admitted for possible TIA due to facial twitch of the right and left side of face. Numbness and tingling felt in face. Short period of poor hand eye coronation. Period of unstable gait. Patient returned to baseline within 15 minutes. All this occurred while at work. Patient admits to some increased anxiety with her job. 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 Agreed to not leave AMA and get observation and small workup for TIA * Admit observation * CT brain: No acute events * MRI brain pending * Carotid ultrasounds pending * Trending troponins * Trending EKG * Permissive hypertension * Lipid profile * NIH scoring * Placed on telemetry * Neuro checks every 4 (2) Panic attack Status: Acute Plan: Patient does admit to having some increased stresses at work. Requested some time off from work. Demanded to receive Xanax while in the hospital. Agreed to provide Xanax during this interval observation due to her severe anxiety. Believes that the main event more likely to be panic attack versus TIA * Continue home medication of Topamax 300 mg by mouth daily * Continue Zoloft 200 mg by mouth daily * Continue amitriptyline 25 mg by mouth * Xanax 1 mg by mouth every 8 hours (3) Diabetes type 2, uncontrolled Status: Chronic Plan: Patient has poorly controlled diabetes ran glucose elevated at 367. Provided dosing of insulin while in the ED. * Placed on insulin sliding scale * Monitor blood glucose per protocol (4) Hypothyroidism Status: Acute Plan: Patient has a long-standing history of hypothyroidism * Continue home dose of Synthroid (5) Hypertension Status: Acute Plan: Reported history of hypertension. Patient currently not on any medications. * Start hydralazine 20 mg IV every 4 hours when necessary (6) Nutrition, metabolism, and development symptoms Status: Acute Plan: Diabetic diet Vitals every 4 Neuro checks every [address] on telemetry Incentive spirometry SCDs for DVT prophylaxis CODE STATUS: Full code Disposition: Plan for discharge tomorrow after 24hr for observation (Jorge Weiner MD R2) Problem Qualifiers (1) TIA (transient ischemic attack): Qualified Code: G45.9 - Transient cerebral ischemia, unspecified type (2) Diabetes type 2, uncontrolled: Qualified Code: E11.8 - Uncontrolled type 2 diabetes mellitus with complication , without long-term current use of insulin Jorge Weiner MD R2 Oct 05, 2016 15:35 Yasmani Montano MD Oct 06, 2016 11:55
[2016-10-05] MEDS ORDERED: TOPA50TA7 PO (16:00)
[2016-10-05] MEDS ORDERED: NALOXONE HCL 0.4 MG/ML AMP IV PRN (16:00)
[2016-10-05] MEDS ORDERED: DEXTROSE 50% IN WATER 50 ML VIAL(D50) IV PUSH PRN (16:00)
[2016-10-05] MEDS ORDERED: SODIUM CHLORIDE 0.9% FLUSH 5 ML FLUSH FLUSH PRN (16:00)
[2016-10-05] MEDS ORDERED: GLUCAGON 1 MG/ML VIAL OTHER PRN (16:00)
[2016-10-05] MEDS ORDERED: ONDANSETRON HCL 4 MG/2 ML VIAL IVP PRN (16:00)
[2016-10-05] MEDS ORDERED: hydrALAZINE HCL 20 MG/ML VIAL IV PUSH PRN (17:00)
[2016-10-05] MEDS: INSULIN ASPART SUPPLEMENTAL SCALE SQ SCH ×2 (17:47→21:32)
[2016-10-05 17:51] VITALS: BP 117/60; PULSE 93; RESP 16; O2SAT 97
[2016-10-05] MEDS: ALPRAZolam 1 MG TAB PO SCH (18:52)
--- NOTE | 2016-10-05 19:21 | RADRPT ---
EXAM DATE/TIME: 10/05/2016 18:47 [facility] COMPARISON: CT BRAIN W/O CONTRAST, October 05, 2016, 13:36. INDICATIONS : Unsteady gait. MEDICAL HISTORY : Diabetes mellitus type 2. SURGICAL HISTORY : Cholecystectomy. section. ENCOUNTER: Initial ACUITY: 1 day PAIN SCORE: 0/10 LOCATION: cranial TECHNIQUE: Multiplanar, multisequence MRI of the brain was performed without contrast. FINDINGS: There is no evidence for intracranial hemorrhage, mass effect, mass lesions, edema, or extra-axial fl uid collections. The ventricles are normal size for the patient's age. There are no signs of acute infarction for technique. The diffusion portion is unremarkable. CONCLUSION: Unremarkable study. Brie Monte MD on October 05, 2016 at 19:17 Board Certified Radiologist. This report was verified electronically.
[2016-10-05 19:41] VITALS: BP 125/63; PULSE 92; RESP 18; O2SAT 98
[2016-10-05] MEDS: SODIUM CHLORIDE 0.9% FLUSH 5 ML FLUSH FLUSH SCH (20:51)
[2016-10-05] MEDS ORDERED: AMITRIPTYLINE HCL 25 MG TAB PO SCH (21:00)
[2016-10-05] MEDS ORDERED: GLIMEPIRIDE 4 MG TAB PO SCH (21:00)
[2016-10-05 21:34] VITALS: BP 113/56; PULSE 91; RESP 18; O2SAT 95
[2016-10-06 01:16] VITALS: BP 125/75; PULSE 77; RESP 18; O2SAT 98
[2016-10-06] MEDS: ALPRAZolam 1 MG TAB PO SCH ×2 (01:32→08:47)
[2016-10-06 02:20] VITALS: BP 126/70; PULSE 80; RESP 16; TEMP 97; O2SAT 97
[2016-10-06 03:22] VITALS: PULSE 76
[2016-10-06 04:04] VITALS: BP 136/78; PULSE 78; RESP 16; TEMP 98.2; O2SAT 94
[2016-10-06 04:26] LABS: AUTOMATED NEUTROPHIL # 4.6 TH/MM3 (1.8-7.7); BASOPHIL # 0.1 TH/MM3 (0-0.2); BASOPHIL % 1.3 % (0.0-2.0); EOSINOPHIL # 0.3 TH/MM3 (0-0.4); EOSINOPHIL % 2.9 % (0.0-4.0); HEMATOCRIT 40.3 % (35.0-46.0); HEMO FLAGS DIFF FINAL; LYMPH % 39.4 % (9.0-44.0); LYMPHOCYTE # 3.7 TH/MM3 (1.0-4.8); MEAN CELL VOLUME 93.1 FL (80.0-100.0); MEAN CORPUSCULAR HEMOGLOBIN 32.4 PG (27.0-34.0); MEAN CORPUSCULAR HGB CONC 34.8 % (32.0-36.0); MONO % 8.1 % (0.0-8.0); NEUT % 48.3 % (16.0-70.0); PLATELET COUNT 306 TH/MM3 (150-450); RED BLOOD COUNT 4.33 MIL/MM3 (4.00-5.30); RED CELL DISTRIBUTION WIDTH 13.5 % (11.6-17.2); WHITE BLOOD COUNT 9.4 TH/MM3 (4.0-11.0)
[2016-10-06 05:04] LABS: ANION GAP 8 MEQ/L (5-15); BICARBONATE 22.1 MEQ/L (21.0-32.0); BLOOD UREA NITROGEN 9 MG/DL (7-18); CHLORIDE 112 MEQ/L (98-107); GLOMERULAR FILTRATION RATE 119 ML/MIN (>89); POTASSIUM 3.6 MEQ/L (3.5-5.1); SODIUM (NA) 142 MEQ/L (136-145)
[2016-10-06 05:05] LABS: HDL CHOLESTEROL 39.8 MG/DL (40.0-60.0); LDL CHOLESTEROL 150 MG/DL (0-99)
[2016-10-06] MEDS ORDERED: LEVOTHYROXINE SODIUM 125 MCG TAB PO SCH (06:00)
[2016-10-06 07:00] VITALS: PULSE 95
[2016-10-06] MEDS: INSULIN ASPART SUPPLEMENTAL SCALE SQ SCH (07:29)
[2016-10-06 08:16] VITALS: BP 120/67; PULSE 90; RESP 20; TEMP 98; O2SAT 94
[2016-10-06] MEDS: SODIUM CHLORIDE 0.9% FLUSH 5 ML FLUSH FLUSH SCH (08:44)
[2016-10-06] MEDS ORDERED: ASPIRIN 81 MG CHEW TAB PO SCH (09:00)
[2016-10-06] MEDS ORDERED: SERTRALINE HCL 100 MG TAB PO SCH (09:00)
[2016-10-06] MEDS ORDERED: TOPIRAMATE 100 MG TAB PO SCH (09:00)
[2016-10-06] MEDS ORDERED: ATOR20TA15 PO (09:17)
--- NOTE | 2016-10-06 09:18 | HHI.FPPN ---
Subjective Remarks FM Attending Note: Patient seen and examined. S: Chart and all resident physician notes reviewed. In summary this is a 40 year old female who was admitted with an admission diagnosis of Transient Ischemic Attack. This patient has a history of significant anxiety difficulties. She is under the care of a psychiatrist to recently increased her dose of Topamax from 200 mg daily to 300 mg daily. She is also on sertraline and amitriptyline. Yesterday prior to admission she reports the onset of some unusual symptoms including facial twitching and some ataxia her hands. She was taken to the aid station at work with removal of her normal work -related equipment and her symptoms slowly resolved. She came to the emergency room for further evaluation. Imaging and lab studies have been normal. No further difficulties have been noted through the night. This morning the patient feels that she is at her baseline. Objective Vitals Vital Signs Date Time Temp Pulse Resp B/P Pulse Ox O2 Delivery O2 Flow Rate FiO2 10/06/16 08:16 98.0 90 20 120/67 94 10/06/16 04:04 98.2 78 16 136/78 94 10/06/16 03:22 76 10/06/16 02:20 97.0 80 16 126/70 97 10/06/16 01:16 77 18 125/75 98 Room Air 10/05/16 21:34 91 18 113/56 95 Room Air 10/05/16 19:41 92 18 125/63 98 Room Air 10/05/16 17:51 93 16 117/60 97 Room Air 10/05/16 15:26 92 18 167/90 98 Room Air 10/05/16 12:47 97 Room Air 10/05/16 12:38 18 Room Air 10/05/16 12:38 99.1 101 18 164/103 98 Room Air I/O 10/05/16 10/05/16 10/05/16 10/06/16 10/06/16 10/06/16 07:00 15:00 23:00 07:00 15:00 23:00 Intake Total 80 ml Balance 80 ml Intake Oral 80 ml Result Diagram: 10/06/16 0354 10/06/16 0354 Other Results Item Value Date Time Magnesium Level 2.1 MG/DL 10/05/16 1306 Troponin I LESS THAN 0.02 NG/ML L 10/05/16 1306 Troponin I LESS THAN 0.02 NG/ML L 10/05/16 1925 Troponin I LESS THAN 0.02 NG/ML L 10/06/16 0354 Triglycerides Level 165 MG/DL H 10/06/16 0354 Cholesterol Level 223 MG/DL H 10/06/16 0354 LDL Cholesterol 150 MG/DL H 10/06/16 0354 HDL Cholesterol 39.8 MG/DL L 10/06/16 0354 Cholesterol/HDL Ratio 5.60 RATIO 10/06/16 0354 Random Glucose 367 MG/DL H 10/05/16 1306 Imaging Last [address] 10/05/16 1241 Signed Impressions: Service Date/Time: Wednesday, October 05, 2016 13:36 - CONCLUSION: No acute disease. No significant change has occurred. Himanshu Frias MD Brain MRI 10/05/16 0000 Signed Impressions: Service Date/Time: Wednesday, October 05, 2016 18:47 - CONCLUSION: Unremarkable study. Brie Monte MD Objective Remarks O. CONSTITUTIONAL/GEN: normally nourished with elevated BMI, in NAD. EYES: conjunctiva normal, PERRLA, EOMI. ENT: Mouth and pharynx normal. LUNGS: clear A-P, respiratory effort is normal. CARDIOVASCULAR: RR without murmur or gallop. No significant edema. GI/ABD: soft without masses, without organomegaly. NEURO: No focal deficits. SKIN: color normal, no rashes noted. HEME/LYMPH: no bruising, petechia or significant adenopathy MUSC: back is normal in appearance. Extremities are normal in appearance. PSYCH/MENTAL STATUS: Alert and oriented x 3. Anxious. A/P Assessment and Plan This is a 40-year-old female with past, history consistent of type 2 diabetes, anxiety, hypothyroidism, and hyperlipidemia being admitted observation for anxiety versus migraine versus TIA. Problem List: (1) Panic attack Status: Acute Plan: Patient does admit to having some increased stresses at work. Requested some time off from work. Demanded to receive Xanax while in the hospital. Agreed to provide Xanax during this interval observation due to her severe anxiety. Believes that the main event more likely to be panic attack versus TIA * Continue home medication of Topamax 300 mg by mouth daily * Continue Zoloft 200 mg by mouth daily * Continue amitriptyline 25 mg by mouth * Xanax 1 mg by mouth every 8 hours 10/06/16 This patient has a significant history of anxiety disorder. Her neurologic evaluation including labs and imaging has all been normal. I would suspect the symptoms she described could be due to a mild adverse reaction from the increased dose of Topamax in combination with her other medications. These symptoms could also be secondary to her anxiety disorder. At this time it is safe to discharge her home to continue care as an ambulatory patient. For now we would recommend decreasing the Topamax back to 200 mg daily with follow-up with her psychiatrist. (2) TIA (transient ischemic attack) Status: Acute Plan: Patient is being admitted for possible TIA due to facial twitch of the right and left side of face. Numbness and tingling felt in face. Short period of poor hand eye coronation. Period of unstable gait. Patient returned to baseline within 15 minutes. All this occurred while at work. Patient admits to some increased anxiety with her job. 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 Agreed to not leave AMA and get observation and small workup for TIA * Admit observation * CT brain: No acute events * MRI brain pending * Carotid ultrasounds pending * Trending troponins * Trending EKG * Permissive hypertension * Lipid profile * NIH scoring * Placed on telemetry * Neuro checks every 4 10/06/16 Her history, physical findings, laboratory and imaging studies are not consistent with a TIA. She does have some abnormal lipid values with an elevated nonfasting glucose that would place her at increased risk for cerebrovascular disease. She reports that she has not been able to tolerate statin therapy in the past. We did discuss lifestyle changes in diet that could help decrease her abnormal lipid values. She is encouraged again to follow-up with her primary care physician for ongoing preventative care. (3) Diabetes type 2, uncontrolled Status: Chronic Plan: Patient has poorly controlled diabetes ran glucose elevated at 367. Provided dosing of insulin while in the ED. * Placed on insulin sliding scale * Monitor blood glucose per protocol (4) Hypothyroidism Status: Acute Plan: Patient has a long-standing history of hypothyroidism * Continue home dose of Synthroid (5) Hypertension Status: Acute Plan: Reported history of hypertension. Patient currently not on any medications. * Start hydralazine 20 mg IV every 4 hours when necessary (6) Nutrition, metabolism, and development symptoms Status: Acute Plan: Diabetic diet Vitals every 4 Neuro checks every [address] on telemetry Incentive spirometry SCDs for DVT prophylaxis CODE STATUS: Full code Disposition: Plan for discharge tomorrow after 24hr for observation Problem Qualifiers (1) TIA (transient ischemic attack): Qualified Code: G45.9 - Transient cerebral ischemia, unspecified type (2) Diabetes type 2, uncontrolled: Qualified Code: E11.8 - Uncontrolled type 2 diabetes mellitus with complication , without long-term current use of insulin Yasmani Montano MD Oct 06, 2016 09:18
[2016-10-06] MEDS ORDERED: TOPI200 PO (09:22)
--- NOTE | 2016-10-06 09:23 | HHI.DCPOC ---
Discharge Care Plan Diagnosis: (1) Panic attack (2) Adverse drug reaction Goals to Promote Your Health * To prevent worsening of your condition and complications * To maintain your health at the optimal level Directions to Meet Your Goals Take your medications as prescribed Follow your dietary instruction Follow activity as directed Keep your appointments as scheduled Take your immunizations and boosters as scheduled If your symptoms worsen call your PCP, if no PCP go to Urgent Care Center or Emergency Room Smoking is Dangerous to Your Health. Avoid second hand smoke Call the 24-hour hour crisis hotline for domestic abuse at Jai Schrader MD R3 Oct 06, 2016 09:23
--- NOTE | 2016-10-07 12:03 | EKG ---
Date Performed: 10/05/2016 Time Performed: 14:34:55 PTAGE: 40 years EKG: Sinus rhythm LOW QRS VOLTAGE IN PRECORDIAL LEADS POSSIBLE ANTERIOR MYOCARDIAL INFARCTION Since previous tracing, no significant change noted ABNORMAL ECG PREVIOUS TRACING : 01/02/2016 03.08 DOCTOR: Laura Tillman Interpretating Date/Time 10/07/2016 12:01:56
--- NOTE | 2016-10-07 12:04 | EKG ---
Date Performed: 10/06/2016 Time Performed: 01:05:02 PTAGE: 40 years EKG: Sinus rhythm LOW QRS VOLTAGE IN PRECORDIAL LEADS POSSIBLE ANTERIOR MYOCARDIAL INFARCTION POSSIBLE INFERIOR MYOCAR DIAL INFARCTION Since previous tracing, no significant change noted ABNORMAL ECG PREVIOUS TRACING : 10/05/2016 19.24 DOCTOR: Laura Tillman Interpretating Date/Time 10/07/2016 12:02:37
--- NOTE | 2016-10-07 12:04 | EKG ---
Date Performed: 10/05/2016 Time Performed: 19:24:39 PTAGE: 40 years EKG: Sinus rhythm MARKED LEFT AXIS DEVIATION LOW QRS VOLTAGE IN PRECORDIAL LEADS POSSIBLE ANTERIOR MYOCARDIAL INFARCTI ON Since previous tracing, no significant change noted ABNORMAL ECG PREVIOUS TRACING : 10/05/2016 14.34 DOCTOR: Laura Tillman Interpretating Date/Time 10/07/2016 12:02:14
[2016-11-07] MEDS ORDERED: ACYC400T PO (14:22)
[2016-11-07] MEDS ORDERED: DIFL150T PO (14:48)
[2016-11-07] MEDS ORDERED: ACYC800T PO (14:49)
[2017-01-04] MEDS ORDERED: DIFL150T PO (12:07)
[2017-01-10] MEDS ORDERED: ACYC800T PO (16:09)
[2017-02-07] MEDS ORDERED: CYCL1TAB29 PO (11:33)
== END 2016-10-06 11:02 | disposition home or self-care (01) ==
LOC: NEPE 12:17 → NEDA 14:53 → NEPGCP 10-06 01:50
PROVIDERS: ADMIT Family Medicine; ATTEND Family Medicine
DX: F41.0 Panic disorder [episodic paroxysmal anxiety] (principal); G45.9 Transient cerebral ischemic attack, unspecified; I10 Essential (primary) hypertension; R94.31 Abnormal electrocardiogram [ECG] [EKG]; E78.5 Hyperlipidemia, unspecified; E11.65 Type 2 diabetes mellitus with hyperglycemia; E03.9 Hypothyroidism, unspecified; E78.00 Pure hypercholesterolemia, unspecified; K58.9 Irritable bowel syndrome, unspecified; J45.909 Unspecified asthma, uncomplicated; Z87.891 Personal history of nicotine dependence; Z79.4 Long term (current) use of insulin
CPT/HCPCS: 70450; 70551; 80048; 80061; 82948; 83735; 84484; 84703; 85025; 85610; 85730; 93005; 94150; 96361; 96374; 99285; G0378; J1815; J7030

== ENCOUNTER 2017-01-14 15:37 | Emergency (ER) | payer OTHER ==
[2017-01-14] VITALS (7 sets, daily range): BP systolic 121–219; BP diastolic 79–127; PULSE 93–122; RESP 18–22; TEMP 99.2; O2SAT 96–99
[~2017-01-14 15:37] MED LIST changes: +ACYC400T PO; +ACYC800T PO; +ATOR20TA15 PO; +DIFL150T PO; -TOPA50TA7 PO; +TOPI200 PO
[2017-01-14] MEDS ORDERED: SODIUM CHLORIDE 0.9% FLUSH 10 ML FLUSH IVF PRN (17:15)
--- NOTE | 2017-01-14 17:20 | PD ---
HPI Chief Complaint: Diabetic Time Seen by Provider: 17:12 Travel History International Travel<30 days: No Contact w/Intl Traveler<30days: No Traveled to known affect area: No History of Present Illness HPI Patient is a 41-year-old female presenting to emergency Department due to feeling dehydrated, intermittent chest pain, dysuria, anxiety. She states that she's been out of her insulin for several weeks, she reports esophagus being a type I diabetic but takes Coumadin for it. She reports decreased urination but increased thirst. She states that her chest pain is intermittent, she currently has none now but had chest pain earlier today. She reports the pain is substernal in nature. Patient's past medical history significant for diabetes mellitus, hypothyroidism, anxiety, borderline personality disorder, hyperlipidemia. She denies a history of hypertension stating that her blood pressure was high when she has anxiety attacks. PFSH Past Medical History Hx Anticoagulant Therapy: No Arthritis: No Asthma: Yes (exercise induced) Autoimmune Disease: No Blood Disorders: No Anxiety: Yes Depression: Yes Heart Rhythm Problems: No Cancer: No High Cholesterol: Yes Chemotherapy: No Chest Pain: Yes Congestive Heart Failure: No COPD: No Cerebrovascular Accident: No Diabetes: Yes Patient Takes Glucophage: No Diminished Hearing: No Gastrointestinal Disorders: Yes (IBS) GERD: No Glaucoma: No Genitourinary: Yes Headaches: Yes Hepatitis: No Hiatal Hernia: No Hypertension: No Immune Disorder: No Inguinal Hernia: Yes (LEFT HERNIA) Implanted Vascular Access Dvce: No Musculoskeletal: No Psychiatric: Yes (borderline personality disorder) Immunizations Current: Yes Migraines: No Renal Failure: No Seizures: No Sleep Apnea: No Thyroid Disease: Yes (hypothyroid) Ulcer: No Tetanus Vaccination: < 5 Years Influenza Vaccination: Yes PNEUMOCCOCAL Vaccine (Year): 2 ?: Not Menopausal: No : 2 Para: 2 Ovarian Cysts: Yes Past Surgical History Abdominal Surgery: Yes (Hernia repair) AICD: No Arteriovenous Shunt: No Cardiac Surgery: No Section: Yes (x2) Cholecystectomy: Yes Ear Surgery: No Endocrine Surgery: No Eye Surgery: No Genitourinary Surgery: No Gynecologic Surgery: Yes (Endometrial Ablation) Hysterectomy: No Insulin Pump: No Joint Replacement: No Neurologic Surgery: No Oral Surgery: Yes ([place] teeth) Pacemaker: No Thoracic Surgery: No Social History Alcohol Use: No Tobacco Use: No (Quit 10 years ago) Substance Use: No Allergies-Medications (Allergen,Severity, Reaction): Coded Allergies: Penicillin (Verified Allergy, Severe, NERVOUS FEELING AND SWELLING, 11/07/16 ) Shrimp (Verified Allergy, Severe, MOUTH QUINTANILLA, 11/07/16) Sulfa (Verified Allergy, Severe, HIVES AND NERVOUS FEELING, 11/07/16) Ativan (Verified Allergy, Unknown, UNKNOWN, 11/07/16) Morphine (Verified Adverse Reaction, Severe, LETHARGIC, 11/07/16) Reported Meds & Prescriptions Reported Meds & Active Scripts Active Acyclovir 800 Mg Tab 800 Mg PO BID Diflucan (Fluconazole) 150 Mg Tab 150 Mg PO ONCE Topamax (Topiramate) 200 Mg Tab 200 Mg PO BID Atorvastatin (Atorvastatin Calcium) 20 Mg Tab 20 Mg PO HS Reported Acyclovir 400 Mg Tab 400 Mg PO DAILY Klonopin (Clonazepam) 2 Mg Tab 2 Mg PO DAILY Amitriptyline (Amitriptyline HCl) 25 Mg Tab 25 Mg PO HS Glimepiride 4 Mg Tab 4 Mg PO BID Take with breakfast or first main meal Levothyroxine (Levothyroxine Sodium) 125 Mcg Tab 125 Mcg PO DAILY Zoloft (Sertraline HCl) 100 Mg Tab 200 Mg PO DAILY Review of Systems Except as stated in HPI: all other systems reviewed are Neg General / Constitutional: Positive: Other (fatigue) Cardiovascular: Positive: Chest Pain or Discomfort Respiratory: No: Shortness of Breath Gastrointestinal: No: Nausea, Vomiting, Abdominal Pain Genitourinary: Positive: Dysuria, Decreased Urinary Output Psychiatric: Positive: Anxiety, Depression Physical Exam Narrative GENERAL: Obese, well-developed, anxious-appearing female. SKIN: Focused skin assessment warm/dry. HEAD: Atraumatic. Normocephalic. EYES: Pupils equal and round. No scleral icterus. No injection or drainage. ENT: No nasal bleeding or discharge. Mucous membranes pink and moist. NECK: Trachea midline. No JVD. CARDIOVASCULAR: Tachycardic. No murmur appreciated. RESPIRATORY: No accessory muscle use. Clear to auscultation. Breath sounds equal bilaterally. GASTROINTESTINAL: Abdomen obese, soft, non-tender, nondistended. Hepatic and splenic margins not palpable. MUSCULOSKELETAL: No obvious deformities. No clubbing. No cyanosis. No edema. NEUROLOGICAL: Awake and alert. No obvious cranial nerve deficits. Motor grossly within normal limits. Normal speech. PSYCHIATRIC: Anxious mood and affect; insight and judgment normal. Data Data Last Documented VS Vital Signs Date Time Temp Pulse Resp B/P Pulse Ox O2 Delivery O2 Flow Rate FiO2 01/14/17 17:34 96 21 01/14/17 17:11 96 18 127/84 Room Air 01/14/17 16:26 99.2 Orders Electrocardiogram (01/14/17 17:01) Ckmb (Isoenzyme) Profile (01/14/17 17:) Complete Blood Count With Diff (01/14/17 17:) Comprehensive Metabolic Panel (01/14/17 17:) Magnesium (Mg) (01/14/17 17:) Prothrombin Time / Inr (Pt) (01/14/17 17:) Act Partial Throm Time (Ptt) (01/14/17 17:) Troponin I (01/14/17 17:) Chest, Single Ap (01/14/17 17:) Ecg Monitoring (01/14/17 17:01) Bilateral Bp Monitoring (01/14/17 17:) Iv Access Insert/Monitor (01/14/17 17:) Oximetry (01/14/17 17:01) Oxygen Administration (01/14/17 17:01) Sodium Chloride 0.9% Flush (Ns Flush) (01/14/17 17:15) Resp Blood Gas Venous (01/14/17 ) Beta Hydroxybutyrate (Acetone) (01/14/17 17:01) Urinalysis - C+S If Indicated (01/14/17 17:02) Electrocardiogram (01/14/17 ) Blood Gas Venous (Vbg) (01/14/17 07:17) CKMB (01/14/17 17:05) CKMB% (01/14/17 17:05) Sodium Chlor 0.9% 1000 Ml Inj (Ns 1000 M (01/14/17 18:45) Labs Laboratory Tests Test 01/14/17 01/14/17 01/14/17 07:17 17:05 17:20 Blood Gas Puncture Site CL Blood Gas Patient Temperature 98.6 Venous Blood pH 7.37 Venous Blood Partial Pressure 31 mmHg CO2 Venous Blood Partial Pressure 58 mmHg O2 Venous Blood HCO3 17 mmol/L Venous Blood Oxygen Saturation 90 % Venous Blood Oxygen Content 18.8 Vol % Venous Blood Base Excess -6.9 mmol/L Oxygen Delivery Device RA White Blood Count 9.2 TH/MM3 Red Blood Count 4.79 MIL/MM3 Hemoglobin 15.4 GM/DL Hematocrit 44.8 % Mean Corpuscular Volume 93.5 FL Mean Corpuscular Hemoglobin 32.2 PG Mean Corpuscular Hemoglobin 34.4 % Concent Red Cell Distribution Width 13.1 % Platelet Count 348 TH/MM3 Mean Platelet Volume 8.1 FL Neutrophils (%) (Auto) 59.1 % Lymphocytes (%) (Auto) 32.1 % Monocytes (%) (Auto) 5.7 % Eosinophils (%) (Auto) 1.9 % Basophils (%) (Auto) 1.2 % Neutrophils # (Auto) 5.5 TH/MM3 Lymphocytes # (Auto) 3.0 TH/MM3 Monocytes # (Auto) 0.5 TH/MM3 Eosinophils # (Auto) 0.2 TH/MM3 Basophils # (Auto) 0.1 TH/MM3 CBC Comment DIFF FINAL Differential Comment Prothrombin Time 10.0 SEC Prothromb Time International 0.9 RATIO Ratio Activated Partial 25.3 SEC Thromboplast Time Sodium Level 135 MEQ/L Potassium Level 4.1 MEQ/L Chloride Level 105 MEQ/L Carbon Dioxide Level 18.5 MEQ/L Anion Gap 12 MEQ/L Blood Urea Nitrogen 9 MG/DL Creatinine 0.79 MG/DL Estimat Glomerular Filtration 79 ML/MIN Rate Random Glucose 324 MG/DL Calcium Level 8.6 MG/DL Magnesium Level 1.9 MG/DL Total Bilirubin 0.4 MG/DL Aspartate Amino Transf 32 U/L (AST/SGOT) Alanine Aminotransferase 30 U/L (ALT/SGPT) Alkaline Phosphatase 135 U/L Total Creatine Kinase 109 U/L Creatine Kinase MB 1.3 NG/ML Troponin I LESS THAN 0.02 NG/ML Total Protein 7.5 GM/DL Albumin 3.6 GM/DL B-Hydroxybutyrate 0.98 MMOL/L Urine Color YELLOW Urine Turbidity CLEAR Urine pH 5.5 Urine Specific [place] 1.031 Urine Protein NEG mg/dL Urine Glucose (UA) 1000 mg/dL Urine Ketones 10 mg/dL Urine Occult Blood SMALL Urine Nitrite NEG Urine Bilirubin NEG Urine Urobilinogen LESS THAN 2.0 MG/DL Urine Leukocyte Esterase NEG Urine RBC LESS THAN 1 /hpf Urine WBC 2 /hpf Urine Squamous Epithelial 6 /hpf Cells Urine Bacteria OCC /hpf Microscopic Urinalysis Comment CULT NOT INDICATED MDM Medical Decision Making Medical Screen Exam Complete: Yes Emergency Medical Condition: Yes Interpretation(s) Vital Signs Date Time Temp Pulse Resp B/P Pulse Ox O2 Delivery O2 Flow Rate FiO2 01/14/17 17:02 97 Room Air 01/14/17 17:02 97 Room Air 01/14/17 16:57 99 25 99 Room Air 01/14/17 16:57 96 22 219/106 97 Room Air 01/14/17 16:26 99.2 122 22 199/127 99 Differential Diagnosis Anxiety attack versus panic disorder versus DKA versus hyperglycemia versus medication noncompliance versus electrolyte abnormality versus cardiac arrhythmia versus AMI Narrative Course Patient is a 41-year-old female presented to emergency department for evaluation of possible DKA secondary to being out of her insulin for several weeks. Upon initial presentation patient was tearful and extremely anxious, her heart rate was elevated in the upper 120s and, after she calmed down heart rate normalized into the mid 80s. Labs and imaging ordered and pending. IV access established, patient placed on time and to monitor and continuous pulse oximetry. Patient is resting comfortably. CBC is unremarkable Chemistry with glucose of 324, troponin is negative Beta hydroxybutyrate 0.98 Urinalysis with elevated glucose Coags are unremarkable Chest x-ray shows no acute disease Vital signs normalized and patient was calm and no longer anxious. She is resting comfortably, she was advised on the results of labs and imaging. She states that she was on Levemir and sliding scale insulin at home, she will be provided with prescriptions for these medications. She states that she has testing supplies at home. She is encouraged to follow up with her primary doctor or at the [facility]. Patient verbalizes understanding of these instructions. Patient is stable for discharge. Diagnosis Primary Impression: Hyperglycemia Additional Impressions: Anxiety Diabetes 1.5, managed as type 1 Referrals: [facility] Primary Care Physician Patient Instructions: Diabetic Hyperglycemia (GEN), General Instructions, Type 1 Diabetes in Adults (ED) Additional Instructions: Follow-up with your primary doctor or at the [facility] Monitor blood glucose before meals and at night, continue sliding scale insulin as previously prescribed Maintain a heart healthy diabetic diet Return to emergency department for any new or worsening symptoms Med/Other Pt SpecificInfo: Prescription(s) given Scripts Insulin Human Regular Inj (Humulin R Inj)1,000 Unit/10 Ml Vial1 Units SQ ACHS SLIDING SCALE #10 ML Ref 1 Prov:Jasmyne Chowdhury 01/14/17 Insulin Detemir Inj (Levemir Inj)1,000 unit/ 10 ML Vial10 Units SQ HS #1 VIAL Ref 1 Do not mix with any other Insulin. Prov:Jasmyne Chowdhury 01/14/17 Disposition: 01 DISCHARGE HOME Condition: Stable Jasmyne Chowdhury January 14, 2017 17:20
[2017-01-14 17:28] LABS: BLOOD GAS VENOUS BASE EXCESS -6.9 mmol/L (-2-2); BLOOD GAS VENOUS HCO3 17 mmol/L (22-26); BLOOD GAS VENOUS O2 CONTENT 18.8 Vol % (9.0-17.0); BLOOD GAS VENOUS O2 HGB SAT 90 % (70-76); BLOOD GAS VENOUS PCO2 31 mmHg (44-48); BLOOD GAS VENOUS PO2 58 mmHg (35-40); BLOOD GAS VENOUS pH 7.37 (7.360-7.400); CRITICAL VALUE NO; DRAW SITE CL; OXYGEN DEVICE RA; STAT YES; TEMP CORR TO 98.6
[2017-01-14 17:34] LABS: AUTOMATED NEUTROPHIL # 5.5 TH/MM3 (1.8-7.7); BASOPHIL # 0.1 TH/MM3 (0-0.2); BASOPHIL % 1.2 % (0.0-2.0); EOSINOPHIL # 0.2 TH/MM3 (0-0.4); EOSINOPHIL % 1.9 % (0.0-4.0); HEMATOCRIT 44.8 % (35.0-46.0); HEMO FLAGS DIFF FINAL; LYMPH % 32.1 % (9.0-44.0); MEAN CELL VOLUME 93.5 FL (80.0-100.0); MEAN CORPUSCULAR HEMOGLOBIN 32.2 PG (27.0-34.0); MEAN CORPUSCULAR HGB CONC 34.4 % (32.0-36.0); MONO % 5.7 % (0.0-8.0); NEUT % 59.1 % (16.0-70.0); PLATELET COUNT 348 TH/MM3 (150-450); RED BLOOD COUNT 4.79 MIL/MM3 (4.00-5.30); RED CELL DISTRIBUTION WIDTH 13.1 % (11.6-17.2); WHITE BLOOD COUNT 9.2 TH/MM3 (4.0-11.0)
[2017-01-14 17:46] LABS: APTT (PATIENT) 25.3 SEC (24.3-30.1); INTERNATIONAL NORMALIZED RATIO 0.9 RATIO
[2017-01-14 17:50] LABS: BACTERIA, URINE OCC /hpf; BLOOD, URINE SMALL (NEG); COMMENT (UR) CULT NOT INDICATED; CULTURE IF INDICATED CULT NOT INDICATED; GLUCOSE,URINE 1000 mg/dL (NEG); KETONE, URINE 10 mg/dL (NEG); NITRITE,URINE NEG (NEG); PH, URINE 5.5 (5.0-8.5); SQUAMOUS EPITHELIAL CELL URINE 6 /hpf (0-5); URINE COLOR YELLOW (YELLW/STRAW)
--- NOTE | 2017-01-14 17:50 | RADRPT ---
EXAM DATE/TIME: 01/14/2017 17:47 [facility] COMPARISON: CHEST SINGLE AP, September 27, 2016, 12:33. INDICATIONS : Chest pain. MEDICAL HISTORY : None. SURGICAL HISTORY : None. ENCOUNTER: Initial ACUITY: 3 days PAIN SCORE: 6/10 LOCATION: middle chest. FINDINGS: A single view of the chest demonstrates the lungs to be symmetrically aerated without evidence of mas s, infiltrate or effusion. The cardiomediastinal contours are unremarkable. Osseous structures are intact. CONCLUSION: No acute disease. No significant change has occurred. Yury Gaines MD on January 14, 2017 at 17:47 Board Certified Radiologist. This report was verified electronically.
[2017-01-14 17:56] LABS: ALKALINE PHOSPHATASE 135 U/L (45-117); ALT (GPT) 30 U/L (10-53); ANION GAP 12 MEQ/L (5-15); AST (GOT) 32 U/L (15-37); BETA-HYDROXYBUTYRATE 0.98 MMOL/L (0.00-0.39); BICARBONATE 18.5 MEQ/L (21.0-32.0); BLOOD UREA NITROGEN 9 MG/DL (7-18); CHLORIDE 105 MEQ/L (98-107); CREATINE KINASE 109 U/L (26-192); GLOMERULAR FILTRATION RATE 79 ML/MIN (>89); MAGNESIUM 1.9 MG/DL (1.5-2.5); POTASSIUM 4.1 MEQ/L (3.5-5.1); SODIUM (NA) 135 MEQ/L (136-145); TOTAL BILIRUBIN ADULT 0.4 MG/DL (0.2-1.0)
[2017-01-14 18:09] LABS: CKMB 1.3 NG/ML (0.5-3.6)
[2017-01-14] MEDS ORDERED: LEVEMIR SQ (18:45)
[2017-01-14] MEDS ORDERED: SODIUM CHLOR 0.9% 1000 ML INJ 1,000 ML IV ONE (18:45)
[2017-01-14] MEDS ORDERED: INSU100V2 SQ (18:45)
--- NOTE | 2017-01-15 14:35 | EKG ---
Date Performed: 01/14/2017 Time Performed: 17:08:04 PTAGE: 41 years EKG: Sinus rhythm LOW QRS VOLTAGE IN PRECORDIAL LEADS POSSIBLE ANTERIOR MYOCARDIAL INFARCTION Since previous tracing, no significant change noted ABNORMAL ECG PREVIOUS TRACING : 10/06/2016 01.05 DOCTOR: Jorge Hazel Interpretating Date/Time 01/15/2017 14:33:55
[2017-02-07] MEDS ORDERED: CYCL1TAB29 PO (11:33)
[2017-03-05] MEDS ORDERED: TOPA25TA8 PO (07:31)
[2017-03-06] MEDS ORDERED: TOPI200T7 PO (08:21)
== END 2017-01-14 20:47 | disposition home or self-care (01) ==
LOC: NEPC 15:37
DX: E10.65 Type 1 diabetes mellitus with hyperglycemia (principal); E03.9 Hypothyroidism, unspecified; F41.9 Anxiety disorder, unspecified; E78.00 Pure hypercholesterolemia, unspecified; Z79.4 Long term (current) use of insulin; Z91.14 Patient's other noncompliance with medication regimen
CPT/HCPCS: 71010; 80053; 81001; 82010; 82550; 82552; 82805; 83735; 84484; 85025; 85610; 85730; 93005; 99285; J7030

== ENCOUNTER 2017-01-30 22:22 | Emergency (ER) | payer OTHER ==
[~2017-01-30] VITALS: Ht 162.6 cm; Wt 88.9 kg
[~2017-01-30 22:22] MED LIST changes: +INSU100V2 SQ; +LEVEMIR SQ
[2017-01-30 22:27] VITALS: BP 123/91; PULSE 105; RESP 18; TEMP 98.3; O2SAT 98
[2017-01-30] MEDS ORDERED: TOPA25TA8 PO (22:46)
[2017-01-30] MEDS ORDERED: XANA1TAB2 PO (22:46)
[2017-01-30] MEDS ORDERED: LEVO150T7 PO (22:46)
--- NOTE | 2017-01-30 23:13 | PD ---
HPI Chief Complaint: Fall Time Seen by Provider: 23:07 Travel History International Travel<30 days: No Contact w/Intl Traveler<30days: No Traveled to known affect area: No History of Present Illness HPI The patient is a 41-year-old female that fell on her right side, non-syncopal spell fall, had about 9:30 PM tonight. She did not hit her head. Her main complaint is right lateral rib pain. She also has muscle strain around her neck. She states that she had a whiplash once and she is prone to getting cervical strains. She denies any neck pain, thoracic pain or lumbosacral pain or radiation of pain down her arms or legs. She denies any focal weakness or sensory loss. PFSH Past Medical History Hx Anticoagulant Therapy: No Arthritis: No Asthma: Yes (Exercise-induced) Autoimmune Disease: No Blood Disorders: No Anxiety: Yes Depression: Yes Heart Rhythm Problems: No Cancer: No High Cholesterol: Yes Chemotherapy: No Chest Pain: Yes Congestive Heart Failure: No COPD: No Cerebrovascular Accident: No Diabetes: Yes Patient Takes Glucophage: No Diminished Hearing: No Gastrointestinal Disorders: Yes (IBS) GERD: No Glaucoma: No Genitourinary: Yes Headaches: Yes Hepatitis: No Hiatal Hernia: No Hypertension: No Immune Disorder: No Inguinal Hernia: Yes (Left ) Implanted Vascular Access Dvce: No Medical other: Yes (GERD) Musculoskeletal: No Psychiatric: Yes (Borderline personality disorder) Immunizations Current: Yes Migraines: No Renal Failure: No Seizures: No Sleep Apnea: No Thyroid Disease: Yes (Hypo-) Ulcer: No Tetanus Vaccination: < 5 Years PNEUMOCCOCAL Vaccine (Year): 2 ?: Not LMP: Uterine ablation Menopausal: No : 2 Para: 2 Ovarian Cysts: Yes Past Surgical History Abdominal Surgery: Yes (Hernia repair) AICD: No Arteriovenous Shunt: No Cardiac Surgery: No Section: Yes (X's 2) Cholecystectomy: Yes Ear Surgery: No Endocrine Surgery: No Eye Surgery: No Genitourinary Surgery: No Gynecologic Surgery: Yes (Endometrial ablation) Hysterectomy: No Insulin Pump: No Joint Replacement: No Neurologic Surgery: No Oral Surgery: Yes ([place] teeth) Pacemaker: No Thoracic Surgery: No Social History Alcohol Use: No Tobacco Use: No (Quit 10 years ago) Substance Use: No Allergies-Medications (Allergen,Severity, Reaction): Coded Allergies: Penicillin (Verified Allergy, Severe, NERVOUS FEELING AND SWELLING, ) Shrimp (Verified Allergy, Severe, MOUTH QUINTANILLA, 01/30/17) Sulfa (Verified Allergy, Severe, HIVES AND NERVOUS FEELING, 01/30/17) Ativan (Verified Allergy, Unknown, UNKNOWN, 01/30/17) Morphine (Verified Adverse Reaction, Severe, LETHARGIC, 01/30/17) Reported Meds & Prescriptions Reported Meds & Active Scripts Active Reported Xanax (Alprazolam) 1 Mg Tab 1 Mg PO Q6H PRN Topamax (Topiramate) 25 Mg Tab 150 Mg PO BID Levothyroxine (Levothyroxine Sodium) 150 Mcg Tab 125 Mcg PO DAILY Klonopin (Clonazepam) 2 Mg Tab 1 Mg PO BID Amitriptyline (Amitriptyline HCl) 25 Mg Tab 25 Mg PO HS Glimepiride 4 Mg Tab 8 Mg PO DAILY Take with breakfast or first main meal Zoloft (Sertraline HCl) 100 Mg Tab 100 Mg PO BID Review of Systems Except as stated in HPI: all other systems reviewed are Neg Physical Exam Narrative GENERAL: The patient is alert, oriented 3 and slight apparent distress with her right rib pain. Her vital signs show heart rate of 105 and blood pressure 123/91 but otherwise normal. SKIN: Focused skin assessment warm/dry. HEAD: Atraumatic. Normocephalic. EYES: Pupils equal and round. No scleral icterus. No injection or drainage. ENT: No nasal bleeding or discharge. Mucous membranes pink and moist. NECK: Trachea midline. No JVD. There is tenderness over the trapezius on the right but there is no posterior spinous process tenderness or deformity on the cervical spine. CARDIOVASCULAR: Regular rate and rhythm. No murmur appreciated. RESPIRATORY: No accessory muscle use. Clear to auscultation. Breath sounds equal bilaterally. There is tenderness over the lateral chest wall diffusely but not specifically over 1 rib. No flail is present. No crepitus, neither bony nor air is present. GASTROINTESTINAL: Abdomen soft, non-tender, nondistended. Hepatic and splenic margins not palpable. MUSCULOSKELETAL: No obvious deformities. No clubbing. No cyanosis. No edema. No tenderness is present on the thoracic or lumbar spine and there is no deformity in these areas. NEUROLOGICAL: Awake and alert. No obvious cranial nerve deficits. Motor grossly within normal limits. Normal speech. PSYCHIATRIC: Appropriate mood and affect; insight and judgment normal. Data Data Last Documented VS Vital Signs Date Time Temp Pulse Resp B/P Pulse Ox O2 Delivery O2 Flow Rate FiO2 01/30/17 22:27 98.3 105 18 123/91 98 Orders Ribs, Uni (W/Exp Cxr-Min 3vw) (01/30/17 ) MDM Medical Decision Making Medical Screen Exam Complete: Yes Emergency Medical Condition: Yes Medical Record Reviewed: Yes Interpretation(s) Right rib views show no rib fracture in the lungs appear normal. Differential Diagnosis Rib fracture, chest wall contusion, pulmonary contusion, pneumothorax Narrative Course The patient has a chest wall contusion. There is no evidence for any pneumothorax, rib fracture or pulmonary contusion either clinically or on the x- ray. Diagnosis Primary Impression: Chest wall contusion Additional Instructions: Do not drink alcohol or drive on the Flexeril. The Motrin is taken one tablet 3 times daily to develop high anti-inflammatory levels which will reduce the aches and pains. A heating pad on its lowest setting and interposing a towel between your skin and the pad is often useful. Med/Other Pt SpecificInfo: Prescription(s) given Scripts Ibuprofen 600 Mg [id number] Mg PO TID #33 TAB Ref 0 Prov:Eric Maki MD 01/31/17 Cyclobenzaprine (Flexeril)10 Mg Tab10 Mg PO TID #21 TAB Ref 0 Prov:Eric Maki MD 01/31/17 Disposition: 01 DISCHARGE HOME Condition: Stable Eric Maki MD January 30, 2017 23:13
--- NOTE | 2017-01-30 23:36 | RADHPO ---
EXAM DATE/TIME: 01/30/2017 23:13 [facility] COMPARISON: CHEST SINGLE AP, January 14, 2017, 17:47. INDICATIONS : Right posterior rib pain post fall today MEDICAL HISTORY : None. SURGICAL HISTORY : None. ENCOUNTER: Initial ACUITY: 1 day PAIN SCORE: 8/10 LOCATION: Right posterior ribs FINDINGS: Multiple views of the right ribs were performed. There is no evidence of displaced fracture. No precious tructive lesions or areas of periosteal thickening are seen. Expiratory view of the chest is negativ e for pneumothorax. The mediastinal structures are midline. CONCLUSION: Unremarkable examination of the right ribs and chest. Aftab Martinez MD on January 30, 2017 at 23:33 Board Certified Radiologist. This report was verified electronically.
[2017-01-31] MEDS ORDERED: CYCL1TAB29 PO (00:03)
[2017-01-31] MEDS ORDERED: IBUP-232 PO (00:03)
[2017-01-31] MEDS ORDERED: KETOROLAC TROMETHAMINE 60 MG/2 ML (IM) VIAL IM ONE (00:15)
[2017-01-31] MEDS ORDERED: ORPHENADRINE INJ 60 MG/2 ML AMP IM ONE (00:15)
[2017-02-07] MEDS ORDERED: CYCL1TAB29 PO (11:33)
[2017-03-05] MEDS ORDERED: TOPA25TA8 PO (07:31)
[2017-03-06] MEDS ORDERED: TOPI200T7 PO (08:21)
== END 2017-01-31 00:37 | disposition home or self-care (01) ==
LOC: PHEFT 22:22 → PHED 01-31 00:37
DX: S20.211A Contusion of right front wall of thorax, initial encounter (principal); J45.909 Unspecified asthma, uncomplicated; F41.9 Anxiety disorder, unspecified; E78.00 Pure hypercholesterolemia, unspecified; E11.9 Type 2 diabetes mellitus without complications; K58.9 Irritable bowel syndrome, unspecified; K21.9 Gastro-esophageal reflux disease without esophagitis; E03.9 Hypothyroidism, unspecified; W19.XXXA Unspecified fall, initial encounter
CPT/HCPCS: 71101; 96372; 99284; J1885; J2360

== ENCOUNTER 2017-04-28 13:59 | Emergency (ER) | payer OTHER ==
[~2017-04-28] VITALS: Ht 162.6 cm; Wt 85.0 kg
[~2017-04-28 13:59] MED LIST changes: -ACYC400T PO; -ACYC800T PO; -ATOR20TA15 PO; +CYCL1TAB29 PO; -DIFL150T PO; +FLUC150T PO; +IBUP-232 PO; -INSU100V2 SQ; -LEVEMIR SQ; -LEVO125T4 PO; +LEVO150T7 PO; -TOPI200 PO; +TOPI200T7 PO; +XANA1TAB2 PO
[2017-04-28 14:03] VITALS: BP 155/72; PULSE 94; RESP 16; TEMP 97.6; O2SAT 97
[2017-04-28] MEDS ORDERED: SODIUM CHLOR 0.9% 1000 ML INJ 1,000 ML IV ONE (14:30)
--- NOTE | 2017-04-28 14:31 | PD ---
HPI Chief Complaint: Musculoskeletal Complaint Time Seen by Provider: 14:29 Travel History International Travel<30 days: No Contact w/Intl Traveler<30days: No Traveled to known affect area: No History of Present Illness HPI This 41-year-old female is complaining of pain in the left shoulder area which radiates down the left arm. Going on for several weeks. There is no history of injury. She does not have any numbness or tingling in the arm. There is no history of neck injury. She has noticed decreased range of motion of the left shoulder. She has a history of diabetes for 20 years. She has been uncontrolled for some time. She has diabetic neuropathy in her feet and in her fingertips. She does say that she feels like she may be dehydrated. His been no vomiting or diarrhea but her sugar has been elevated PFSH Past Medical History Hx Anticoagulant Therapy: No Arthritis: No Asthma: Yes (Exercise-induced) Autoimmune Disease: No Blood Disorders: No Anxiety: Yes Depression: Yes Heart Rhythm Problems: No Cancer: No High Cholesterol: Yes Chemotherapy: No Chest Pain: Yes Congestive Heart Failure: No COPD: No Cerebrovascular Accident: No Diabetes: Yes Diminished Hearing: No Gastrointestinal Disorders: Yes (IBS) GERD: No Glaucoma: No Genitourinary: Yes Headaches: Yes Hepatitis: No Hiatal Hernia: No Hypertension: No Immune Disorder: No Inguinal Hernia: Yes (Left ) Implanted Vascular Access Dvce: No Musculoskeletal: No Psychiatric: Yes (Borderline personality disorder) Immunizations Current: Yes Migraines: No Renal Failure: No Seizures: No Sleep Apnea: No Thyroid Disease: Yes (Hypo-) Ulcer: No PNEUMOCCOCAL Vaccine (Year): 2 ?: Not LMP: ABLATION Menopausal: No : 2 Para: 2 Ovarian Cysts: Yes Past Surgical History Abdominal Surgery: Yes (Hernia repair) AICD: No Arteriovenous Shunt: No Cardiac Surgery: No Section: Yes (X's 2) Cholecystectomy: Yes Ear Surgery: No Endocrine Surgery: No Eye Surgery: No Genitourinary Surgery: No Gynecologic Surgery: Yes (Endometrial ablation) Hysterectomy: No Insulin Pump: No Joint Replacement: No Neurologic Surgery: No Oral Surgery: Yes ([place] teeth) Pacemaker: No Thoracic Surgery: No Social History Alcohol Use: No Tobacco Use: No (Quit 10 years ago) Substance Use: No Allergies-Medications (Allergen,Severity, Reaction): Coded Allergies: Sulfa (Sulfonamide Antibiotics) (Unverified Allergy, Severe, HIVES AND NERVOUS FEELING, 04/28/17) penicillin G (Unverified Allergy, Severe, NERVOUS FEELING AND SWELLING, ) shrimp (Unverified Allergy, Severe, MOUTH QUINTANILLA, 04/28/17) lorazepam (Unverified Allergy, Unknown, UNKNOWN, 04/28/17) morphine (Unverified Adverse Reaction, Severe, LETHARGIC, 04/28/17) Reported Meds & Prescriptions Reported Meds & Active Scripts Active Reported Topamax (Topiramate) 100 Mg Tab 150 Mg PO BID Levothyroxine (Levothyroxine Sodium) 150 Mcg Tab 125 Mcg PO DAILY Klonopin (Clonazepam) 2 Mg Tab 1 Mg PO BID Glimepiride 4 Mg Tab 4 Mg PO BID Take with breakfast or first main meal Zoloft (Sertraline HCl) 100 Mg Tab 100 Mg PO BID Review of Systems General / Constitutional: No: Fever, Chills Eyes: No: Diploplia, Blurred Vision HENT: No: Headaches, Vertigo Cardiovascular: No: Chest Pain or Discomfort, Palpitations Respiratory: No: Cough, Shortness of Breath Gastrointestinal: No: Nausea Genitourinary: Positive: Frequency Musculoskeletal: Positive: Myalgias, Arthralgias, Pain Skin: No Rash Neurologic: No: Weakness, Dizziness Physical Exam Narrative GENERAL: Well-developed female SKIN: Focused skin assessment warm/dry. HEAD: Atraumatic. Normocephalic. EYES: Pupils equal and round. No scleral icterus. No injection or drainage. ENT: No nasal bleeding or discharge. Mucous membranes dry NECK: Trachea midline. No JVD. CARDIOVASCULAR: Regular rate and rhythm. No murmur appreciated. RESPIRATORY: No accessory muscle use. Clear to auscultation. Breath sounds equal bilaterally. GASTROINTESTINAL: Abdomen soft, non-tender, nondistended. Hepatic and splenic margins not palpable. MUSCULOSKELETAL: No obvious deformities. No clubbing. No cyanosis. No edema. There is some tenderness along the posterior aspect of the scapula. She has restricted movement of the shoulder NEUROLOGICAL: Awake and alert. No obvious cranial nerve deficits. Motor grossly within normal limits. Normal speech. He has some diminished sensation in fingertips and PSYCHIATRIC: Appropriate mood and affect; insight and judgment normal. Data Data Last Documented VS Vital Signs Date Time Temp Pulse Resp B/P (MAP) Pulse Ox O2 Delivery O2 Flow Rate FiO2 04/28/17 14:03 97.6 94 16 155/72 (99) 97 Orders Orders Complete Blood Count With Diff (04/28/17 14:28) Basic Metabolic Panel (Bmp) (04/28/17 14:28) Beta Hydroxybutyrate (Acetone) (04/28/17 14:28) Sodium Chlor 0.9% 1000 Ml Inj (Ns 1000 M (04/28/17 14:30) Insulin Human Regular Inj (Novolin R Inj (04/28/17 15:15) Ketorolac Inj (Toradol Inj) (04/28/17 15:15) Shoulder, Complete (>2vws) (04/28/17 15:16) Labs Laboratory Tests Test 04/28/17 14:45 White Blood Count 9.0 TH/MM3 Red Blood Count 4.90 MIL/MM3 Hemoglobin 15.5 GM/DL Hematocrit 45.9 % Mean Corpuscular Volume 93.7 FL Mean Corpuscular Hemoglobin 31.6 PG Mean Corpuscular Hemoglobin Concent 33.7 % Red Cell Distribution Width 11.9 % Platelet Count 411 TH/MM3 Mean Platelet Volume 7.9 FL Neutrophils (%) (Auto) 67.6 % Lymphocytes (%) (Auto) 25.7 % Monocytes (%) (Auto) 4.2 % Eosinophils (%) (Auto) 1.9 % Basophils (%) (Auto) 0.6 % Neutrophils # (Auto) 6.0 TH/MM3 Lymphocytes # (Auto) 2.3 TH/MM3 Monocytes # (Auto) 0.4 TH/MM3 Eosinophils # (Auto) 0.2 TH/MM3 Basophils # (Auto) 0.1 TH/MM3 CBC Comment DIFF FINAL Differential Comment Blood Urea Nitrogen 9 MG/DL Creatinine 0.76 MG/DL Random Glucose 468 MG/DL Calcium Level 8.3 MG/DL Sodium Level 133 MEQ/L Potassium Level 3.8 MEQ/L Chloride Level 101 MEQ/L Carbon Dioxide Level 21.3 MEQ/L Anion Gap 11 MEQ/L Estimat Glomerular Filtration Rate 83 ML/MIN B-Hydroxybutyrate 1.04 MMOL/L MDM Medical Decision Making Medical Screen Exam Complete: Yes Emergency Medical Condition: Yes Medical Record Reviewed: Yes Differential Diagnosis Differential includes shoulder pain, radiculopathy, uncontrolled diabetes Narrative Course Patient does have restricted movement of the shoulder however her x-ray is normal. Blood sugar is 468. She'll be given some IV fluids and insulin. She feels that the amitriptyline was helping her neuropathy considerably and she has run out. I will prescribe some amitriptyline and she also says Toradol was held with a musculoskeletal pain Diagnosis Primary Impression: Shoulder pain Qualified Codes: M25.512 - Pain in left shoulder Scripts Amitriptyline (Amitriptyline) 25 Mg Tab 25 MG PO HS, #30 TAB Prov: Noe Pozo MD 04/28/17 Ketorolac (Ketorolac) 10 Mg Tab 10 MG PO TID for Pain Management for 30 Days, TAB 0 Refills Prov: Noe Pozo MD 04/28/17 Disposition: 01 DISCHARGE HOME Condition: Stable Noe Pozo MD Apr 28, 2017 14:30
[2017-04-28 15:00] LABS: BASOPHIL # 0.1 TH/MM3 (0-0.2); BASOPHIL % 0.6 % (0.0-2.0); EOSINOPHIL # 0.2 TH/MM3 (0-0.4); EOSINOPHIL % 1.9 % (0.0-4.0); HEMATOCRIT 45.9 % (35.0-46.0); LYMPH % 25.7 % (9.0-44.0); LYMPHOCYTE # 2.3 TH/MM3 (1.0-4.8); MEAN CELL VOLUME 93.7 FL (80.0-100.0); MEAN CORPUSCULAR HEMOGLOBIN 31.6 PG (27.0-34.0); MEAN CORPUSCULAR HGB CONC 33.7 % (32.0-36.0); MONO % 4.2 % (0.0-8.0); NEUT % 67.6 % (16.0-70.0); PLATELET COUNT 411 TH/MM3 (150-450); RED CELL DISTRIBUTION WIDTH 11.9 % (11.6-17.2)
[2017-04-28 15:07] LABS: HEMO FLAGS DIFF FINAL
[2017-04-28] MEDS ORDERED: TOPA100T11 PO (15:08)
[2017-04-28 15:11] LABS: POTASSIUM 3.8 MEQ/L (3.5-5.1)
[2017-04-28 15:13] LABS: BICARBONATE 21.3 MEQ/L (21.0-32.0)
[2017-04-28] MEDS ORDERED: INSULIN HUMAN REGULAR 1,000 UNITS/10 ML VIAL SQ ONE (15:15)
[2017-04-28] MEDS ORDERED: KETOROLAC TROMETHAMINE 30 MG/ML (IVP) VIAL IV PUSH ONE (15:15)
[2017-04-28 15:28] LABS: BETA-HYDROXYBUTYRATE 1.04 MMOL/L (0.00-0.39)
--- NOTE | 2017-04-28 15:43 | RADRPT ---
EXAM DATE/TIME: 04/28/2017 15:24 [facility] COMPARISON: No previous studies available for comparison. INDICATIONS : Severe left shoulder pain with limited ROM for 1 month, no known injury MEDICAL HISTORY : None. SURGICAL HISTORY : None. ENCOUNTER: Initial ACUITY: 1 month PAIN SCORE: 10/10 LOCATION: Left shoulder FINDINGS: Multiple view examination of the left shoulder demonstrates no evidence of fracture or dislocation. The glenohumeral and acromioclavicular joints are maintained. There is normal range of motion betwee n internal and external rotation. Bony mineralization is normal. CONCLUSION: Left shoulder radiographs are within normal limits. Aftab Nielson MD on April 28, 2017 at 15:40 Board Certified Radiologist. This report was verified electronically.
[2017-04-28] MEDS ORDERED: KETO10 PO (15:46)
[2017-04-28] MEDS ORDERED: AMIT25TA9 PO (15:46)
[2017-04-28 16:26] VITALS: BP 140/70; PULSE 74; RESP 18; O2SAT 98
== END 2017-04-28 16:28 | disposition home or self-care (01) ==
LOC: PHED 13:59
DX: M25.512 Pain in left shoulder (principal); Z87.891 Personal history of nicotine dependence; E11.40 Type 2 diabetes mellitus with diabetic neuropathy, unspecified; J45.909 Unspecified asthma, uncomplicated; K58.9 Irritable bowel syndrome, unspecified; Z88.0 Allergy status to penicillin; Z79.899 Other long term (current) drug therapy
CPT/HCPCS: 73030; 80048; 82010; 85025; 90472; 96361; 96374; 99284; J1815; J1885; J7030

== ENCOUNTER 2017-07-19 11:44 | Emergency (ER) | payer OTHER ==
[~2017-07-19] VITALS: Ht 162.6 cm; Wt 84.0 kg
[~2017-07-19 11:44] MED LIST changes: -CYCL1TAB29 PO; -FLUC150T PO; -IBUP-232 PO; +KETO10 PO; +TOPI100 PO; -TOPI200T7 PO; -XANA1TAB2 PO
[2017-07-19 11:46] VITALS: BP 192/92; PULSE 104; RESP 16; TEMP 97.9; O2SAT 98
[2017-07-19] MEDS ORDERED: SODIUM CHLOR 0.9% 1000 ML INJ 1,000 ML IV ONE ×2 (12:06→12:36)
--- NOTE | 2017-07-19 12:13 | PD ---
HPI Chief Complaint: General Weakness Time Seen by Provider: 11:52 Travel History International Travel<30 days: No Contact w/Intl Traveler<30days: No Traveled to known affect area: No History of Present Illness HPI The patient is a 41-year-old female who presents to the emergency department for generalized weakness. The patient notes a 2 to three-day history of generalized weakness, states her blood sugars have been elevated at home. The patient's blood sugar last night was greater than 400 and she over herself with 20 units of Humalog. The patient states she has a history of hypothyroidism and has been out of her Synthroid for the last month. 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 The patient states she also does not take her Lantus as previously directed, was taken 50 units daily with sliding scale insulin, however, states the insulin makes her face puffy and makes her hungry, therefore, gaining weight. Therefore, the patient has not been taking her long-acting insulin and only uses her short acting insulin as needed. The patient states she was recently out of the [employer] when she apparently passed out and was seen at [facility], diagnosed with DKA, however, signed out against center medical and lab director. The patient states she has difficulty taking her medications as directed seen a physician because she is disabled children. Patient also states she has difficulty taking her medications as she has a panic attack disorder. PFSH Past Medical History Hx Anticoagulant Therapy: No Arthritis: No Asthma: Yes (Exercise-induced) Autoimmune Disease: No Blood Disorders: No Anxiety: Yes Depression: Yes Heart Rhythm Problems: No Cancer: No Cardiovascular Problems: Yes High Cholesterol: Yes Chemotherapy: No Chest Pain: Yes Congestive Heart Failure: No COPD: No Cerebrovascular Accident: No Diabetes: Yes Diminished Hearing: No Endocrine: Yes Gastrointestinal Disorders: Yes (IBS) GERD: No Glaucoma: No Genitourinary: Yes Headaches: Yes Hepatitis: No Hiatal Hernia: No Hypertension: No Immune Disorder: No Inguinal Hernia: Yes (Left ) Implanted Vascular Access Dvce: No Musculoskeletal: No Neurologic: Yes Psychiatric: Yes (Borderline personality disorder) Reproductive: Yes Respiratory: Yes Immunizations Current: Yes Migraines: No Renal Failure: No Seizures: No Sleep Apnea: No Thyroid Disease: Yes (Hypo-) Ulcer: No PNEUMOCCOCAL Vaccine (Year): 2 ?: Not Menopausal: No : 2 Para: 2 Ovarian Cysts: Yes Past Surgical History Abdominal Surgery: Yes (Hernia repair) AICD: No Arteriovenous Shunt: No Cardiac Surgery: No Section: Yes (X's 2) Cholecystectomy: Yes Ear Surgery: No Endocrine Surgery: No Eye Surgery: No Genitourinary Surgery: No Gynecologic Surgery: Yes (Endometrial ablation) Hysterectomy: No Insulin Pump: No Joint Replacement: No Neurologic Surgery: No Oral Surgery: Yes ([place] teeth) Pacemaker: No Thoracic Surgery: No Other Surgery: Yes (HERNIA REPAIR) Social History Alcohol Use: No Tobacco Use: No (Quit 10 years ago) Substance Use: No Allergies-Medications (Allergen,Severity, Reaction): Coded Allergies: Sulfa (Sulfonamide Antibiotics) (Unverified Allergy, Severe, HIVES AND NERVOUS FEELING, 07/19/17) penicillin G (Unverified Allergy, Severe, NERVOUS FEELING AND SWELLING, ) shrimp (Unverified Allergy, Severe, MOUTH QUINTANILLA, 07/19/17) lorazepam (Unverified Allergy, Unknown, UNKNOWN, 07/19/17) morphine (Unverified Adverse Reaction, Severe, LETHARGIC, 07/19/17) Reported Meds & Prescriptions Reported Meds & Active Scripts Active Reported Topamax (Topiramate) 100 Mg Tab 150 Mg PO BID Levothyroxine (Levothyroxine Sodium) 150 Mcg Tab 125 Mcg PO DAILY Klonopin (Clonazepam) 2 Mg Tab 1 Mg PO BID Glimepiride 4 Mg Tab 4 Mg PO BID Take with breakfast or first main meal Zoloft (Sertraline HCl) 100 Mg Tab 100 Mg PO BID Review of Systems Except as stated in HPI: all other systems reviewed are Neg General / Constitutional: No: Fever Cardiovascular: No: Chest Pain or Discomfort Respiratory: No: Shortness of Breath Gastrointestinal: No: Nausea, Vomiting, Abdominal Pain Musculoskeletal: Positive: Weakness Neurologic: Positive: Weakness Psychiatric: Positive: Other (panic attacks) Endocrine: Positive: Other (history of diabetes and hypothyroidism) Physical Exam Narrative GENERAL: Awake, alert, tearful 41 year-old female appears her stated age and is in no acute respiratory distress. SKIN: Focused skin assessment warm/dry. Tattoos of the right foot noted. HEAD: Atraumatic. Normocephalic. EYES: Pupils equal and round. No scleral icterus. No injection or drainage. ENT: No nasal bleeding or discharge. Mucous membranes pink and moist. NECK: Trachea midline. No JVD. CARDIOVASCULAR: Regular, tachycardic with a heart rate of 105. RESPIRATORY: No accessory muscle use. Clear to auscultation. Breath sounds equal bilaterally. GASTROINTESTINAL: Abdomen soft, non-tender, nondistended. No rebound tenderness , guarding, rigidity. MUSCULOSKELETAL: No obvious deformities. No clubbing. No cyanosis. No edema. NEUROLOGICAL: Awake and alert. No obvious cranial nerve deficits. Motor grossly within normal limits. Normal speech. Nonfocal. PSYCHIATRIC: Tearful, cries during the examination stating she suffers from panic attacks. Data Data Last Documented VS Vital Signs Date Time Temp Pulse Resp B/P (MAP) Pulse Ox O2 Delivery O2 Flow Rate FiO2 07/19/17 13:37 78 20 138/84 (102) 98 07/19/17 11:46 97.9 Orders Orders Electrocardiogram (07/19/17 12:06) Complete Blood Count With Diff (07/19/17 12:06) Comprehensive Metabolic Panel (07/19/17 12:06) Beta Hydroxybutyrate (Acetone) (07/19/17 12:06) Lactic Acid (07/19/17 12:06) Urinalysis - C+S If Indicated (07/19/17 12:06) Blood Gas Venous (Vbg) (07/19/17 12:06) Blood Glucose (07/19/17 12:06) Blood Glucose (07/19/17 13:06) Ecg Monitoring (07/19/17 12:06) Iv Access Insert/Monitor (07/19/17 12:06) Oximetry (07/19/17 12:06) NPO (07/19/17 12:06) Sodium Chlor 0.9% 1000 Ml Inj (Ns 1000 M (07/19/17 12:06) Sodium Chlor 0.9% 1000 Ml Inj (Ns 1000 M (07/19/17 12:36) Sodium Chloride 0.9% Flush (Ns Flush) (07/19/17 12:15) Thyroid Stimulating Hormone (07/19/17 12:06) Free Thyroxine (T4) (07/19/17 12:06) Free T3 (07/19/17 12:06) Insulin Aspart Inj (Novolog Inj) (07/19/17 13:30) Insulin Human Regular Inj (Novolin R Inj (07/19/17 13:30) Labs Laboratory Tests Test 07/19/17 12:39 07/19/17 12:40 Blood Gas Puncture Site RT BRACHIAL Blood Gas Patient Temperature 98.6 Venous Blood pH 7.39 Venous Blood Partial Pressure CO2 36 mmHg Venous Blood Partial Pressure O2 50 mmHg Venous Blood HCO3 21 mmol/L Venous Blood Oxygen Saturation 83 % Venous Blood Oxygen Content 17.4 Vol % Venous Blood Base Excess -3.1 mmol/L White Blood Count 10.1 TH/MM3 Red Blood Count 4.59 MIL/MM3 Hemoglobin 14.8 GM/DL Hematocrit 43.3 % Mean Corpuscular Volume 94.4 FL Mean Corpuscular Hemoglobin 32.2 PG Mean Corpuscular Hemoglobin Concent 34.1 % Red Cell Distribution Width 13.0 % Platelet Count 379 TH/MM3 Mean Platelet Volume 7.8 FL Neutrophils (%) (Auto) 64.7 % Lymphocytes (%) (Auto) 26.8 % Monocytes (%) (Auto) 5.6 % Eosinophils (%) (Auto) 1.9 % Basophils (%) (Auto) 1.0 % Neutrophils # (Auto) 6.5 TH/MM3 Lymphocytes # (Auto) 2.7 TH/MM3 Monocytes # (Auto) 0.6 TH/MM3 Eosinophils # (Auto) 0.2 TH/MM3 Basophils # (Auto) 0.1 TH/MM3 CBC Comment DIFF FINAL Differential Comment Urine Collection Type CLEAN CATCH Urine Color STRAW Urine Turbidity CLEAR Urine pH 6.0 Urine Specific [place] 1.021 Urine Protein NEG mg/dL Urine Glucose (UA) 1000 OR GREATER mg/dL Urine Ketones 15 mg/dL Urine Occult Blood NEG Urine Nitrite NEG Urine Bilirubin NEG Urine Leukocyte Esterase NEG Urine WBC 0-2 /hpf Urine Squamous Epithelial Cells 0-5 /hpf Microscopic Urinalysis Comment CULT NOT INDICATED Urine Collection Time 123:40 Blood Urea Nitrogen 11 MG/DL Creatinine 0.66 MG/DL Random Glucose 407 MG/DL Total Protein 6.9 GM/DL Albumin 3.2 GM/DL Calcium Level 8.1 MG/DL Alkaline Phosphatase 106 U/L Aspartate Amino Transf (AST/SGOT) 12 U/L Alanine Aminotransferase (ALT/SGPT) 25 U/L Total Bilirubin 0.4 MG/DL Sodium Level 133 MEQ/L Potassium Level 3.6 MEQ/L Chloride Level 101 MEQ/L Carbon Dioxide Level 20.5 MEQ/L Anion Gap 12 MEQ/L Estimat Glomerular Filtration Rate 98 ML/MIN Lactic Acid Level 1.0 mmol/L Thyroid Stimulating Hormone 3rd Gen 3.640 uIU/ML B-Hydroxybutyrate 1.16 MMOL/L [facility] Medical Decision Making Medical Screen Exam Complete: Yes Emergency Medical Condition: Yes Medical Record Reviewed: Yes Interpretation(s) EKG reveals normal sinus rhythm with a rate in 98. Low QRS voltage precordial leads. Slightly prolonged QTC at 418 ms, just less than half of the RR interval. Laboratory Tests Test 07/19/17 12:39 07/19/17 12:40 Blood Gas Puncture Site RT BRACHIAL Blood Gas Patient Temperature 98.6 Venous Blood pH 7.39 Venous Blood Partial Pressure CO2 36 mmHg Venous Blood Partial Pressure O2 50 mmHg Venous Blood HCO3 21 mmol/L Venous Blood Oxygen Saturation 83 % Venous Blood Oxygen Content 17.4 Vol % Venous Blood Base Excess -3.1 mmol/L White Blood Count 10.1 TH/MM3 Red Blood Count 4.59 MIL/MM3 Hemoglobin 14.8 GM/DL Hematocrit 43.3 % Mean Corpuscular Volume 94.4 FL Mean Corpuscular Hemoglobin 32.2 PG Mean Corpuscular Hemoglobin Concent 34.1 % Red Cell Distribution Width 13.0 % Platelet Count 379 TH/MM3 Mean Platelet Volume 7.8 FL Neutrophils (%) (Auto) 64.7 % Lymphocytes (%) (Auto) 26.8 % Monocytes (%) (Auto) 5.6 % Eosinophils (%) (Auto) 1.9 % Basophils (%) (Auto) 1.0 % Neutrophils # (Auto) 6.5 TH/MM3 Lymphocytes # (Auto) 2.7 TH/MM3 Monocytes # (Auto) 0.6 TH/MM3 Eosinophils # (Auto) 0.2 TH/MM3 Basophils # (Auto) 0.1 TH/MM3 CBC Comment DIFF FINAL Differential Comment Urine Collection Type CLEAN CATCH Urine Color STRAW Urine Turbidity CLEAR Urine pH 6.0 Urine Specific [place] 1.021 Urine Protein NEG mg/dL Urine Glucose (UA) 1000 OR GREATER mg/dL Urine Ketones 15 mg/dL Urine Occult Blood NEG Urine Nitrite NEG Urine Bilirubin NEG Urine Leukocyte Esterase NEG Urine WBC 0-2 /hpf Urine Squamous Epithelial Cells 0-5 /hpf Microscopic Urinalysis Comment CULT NOT INDICATED Urine Collection Time 123:40 Blood Urea Nitrogen 11 MG/DL Creatinine 0.66 MG/DL Random Glucose 407 MG/DL Total Protein 6.9 GM/DL Albumin 3.2 GM/DL Calcium Level 8.1 MG/DL Alkaline Phosphatase 106 U/L Aspartate Amino Transf (AST/SGOT) 12 U/L Alanine Aminotransferase (ALT/SGPT) 25 U/L Total Bilirubin 0.4 MG/DL Sodium Level 133 MEQ/L Potassium Level 3.6 MEQ/L Chloride Level 101 MEQ/L Carbon Dioxide Level 20.5 MEQ/L Anion Gap 12 MEQ/L Estimat Glomerular Filtration Rate 98 ML/MIN Lactic Acid Level 1.0 mmol/L Thyroid Stimulating Hormone 3rd Gen 3.640 uIU/ML B-Hydroxybutyrate 1.16 MMOL/L Differential Diagnosis Differential diagnosis includes DKA, hyperglycemia, dehydration, electrolyte abnormality, hyperthyroidism, noncompliance. Narrative Course IV was established, labs are drawn and sent, and the patient was placed on cardiac telemetry monitoring and continuous pulse oximetry monitoring. EKG was ordered and interpreted. VBG was sent to lab. PH is unremarkable. Anion gap is normal. The patient does not have DKA. Patient's blood sugar was greater than 400, she received 2 L of IV fluids, insulin 6 units intravenously, and 8 units insulin subcutaneously. The patient's blood sugars were checked every hour 2. TSH is within normal limits, patient will be restarted on her Synthroid. She will be provided a copy of her labs and is advised to follow-up with a primary physician and to be compliant with her medications. Diagnosis Primary Impression: Hyperglycemia Additional Impression: Hypothyroidism Qualified Codes: E03.9 - Hypothyroidism, unspecified Patient Instructions: General Instructions Additional Instructions: Medications as directed. Follow-up with your primary physician. Monitor blood sugars closely. Med/Other Pt SpecificInfo: Prescription(s) given Scripts Levothyroxine (Synthroid) 125 Mcg Tab 125 MCG PO DAILY for Thyroid, #30 TAB 2 Refills Prov: Carlos Manuel Andrea MD 07/19/17 Disposition: 01 DISCHARGE HOME Condition: Stable Carlos Manuel Andrea MD Jul 19, 2017 12:13
[2017-07-19] MEDS ORDERED: SODIUM CHLORIDE 0.9% FLUSH 10 ML FLUSH IVF PRN (12:15)
[2017-07-19 12:46] LABS: BLOOD GAS VENOUS BASE EXCESS -3.1 mmol/L (-2-2); BLOOD GAS VENOUS HCO3 21 mmol/L (22-26); BLOOD GAS VENOUS O2 CONTENT 17.4 Vol % (9.0-17.0); BLOOD GAS VENOUS O2 HGB SAT 83 % (70-76); BLOOD GAS VENOUS PCO2 36 mmHg (44-48); BLOOD GAS VENOUS PO2 50 mmHg (35-40); BLOOD GAS VENOUS pH 7.39 (7.360-7.400); TEMP CORR TO 98.6
[2017-07-19 12:47] LABS: CRITICAL VALUE NO; DRAW SITE RT BRACHIAL; STAT YES
[2017-07-19 12:53] LABS: AUTOMATED NEUTROPHIL # 6.5 TH/MM3 (1.8-7.7); BASOPHIL # 0.1 TH/MM3 (0-0.2); EOSINOPHIL # 0.2 TH/MM3 (0-0.4); EOSINOPHIL % 1.9 % (0.0-4.0); HEMATOCRIT 43.3 % (35.0-46.0); HEMO FLAGS DIFF FINAL; LYMPH % 26.8 % (9.0-44.0); LYMPHOCYTE # 2.7 TH/MM3 (1.0-4.8); MEAN CELL VOLUME 94.4 FL (80.0-100.0); MEAN CORPUSCULAR HEMOGLOBIN 32.2 PG (27.0-34.0); MEAN CORPUSCULAR HGB CONC 34.1 % (32.0-36.0); MONO % 5.6 % (0.0-8.0); NEUT % 64.7 % (16.0-70.0); PLATELET COUNT 379 TH/MM3 (150-450); RED BLOOD COUNT 4.59 MIL/MM3 (4.00-5.30); WHITE BLOOD COUNT 10.1 TH/MM3 (4.0-11.0)
[2017-07-19 12:56] LABS: BLOOD, URINE NEG (NEG); GLUCOSE,URINE 1000 OR GREATER mg/dL (NEG); KETONE, URINE 15 mg/dL (NEG); NITRITE,URINE NEG (NEG)
[2017-07-19 13:00] VITALS: O2SAT 98
[2017-07-19 13:02] LABS: CHLORIDE 101 MEQ/L (98-107); POTASSIUM 3.6 MEQ/L (3.5-5.1); SODIUM (NA) 133 MEQ/L (136-145)
[2017-07-19 13:05] LABS: ANION GAP 12 MEQ/L (5-15); BICARBONATE 20.5 MEQ/L (21.0-32.0); COMMENT (UR) CULT NOT INDICATED; CULTURE IF INDICATED CULT NOT INDICATED; METHOD OF COLLECTION CLEAN CATCH; SQUAMOUS EPITHELIAL CELL URINE 0-5 /hpf (0-5); URINE COLOR STRAW (YELLW/STRAW); WBC, URINE 0-2 /hpf (0-5)
[2017-07-19 13:11] LABS: ALKALINE PHOSPHATASE 106 U/L (45-117); ALT (GPT) 25 U/L (10-53); AST (GOT) 12 U/L (15-37); GLOMERULAR FILTRATION RATE 98 ML/MIN (>89); TOTAL BILIRUBIN ADULT 0.4 MG/DL (0.2-1.0)
[2017-07-19 13:12] LABS: BLOOD UREA NITROGEN 11 MG/DL (7-18)
[2017-07-19 13:27] LABS: BETA-HYDROXYBUTYRATE 1.16 MMOL/L (0.00-0.39)
[2017-07-19] MEDS ORDERED: INSULIN HUMAN REGULAR 1,000 UNITS/10 ML VIAL IV PUSH ONE (13:30)
[2017-07-19] MEDS ORDERED: INSULIN ASPART 1,000 UNITS/10 ML VIAL SQ ONE (13:30)
[2017-07-19 13:37] VITALS: BP 138/84; PULSE 78; RESP 20; O2SAT 98
[2017-07-19] MEDS ORDERED: LEVO.125 PO (13:46)
[2017-07-19 15:26] VITALS: BP 139/84
[2017-07-19 16:47] LABS: FREE T3 1.99 PG/ML (2.18-3.98); FREE T4 0.99 NG/DL (0.76-1.46)
--- NOTE | 2017-07-20 09:21 | EKG ---
Date Performed: 07/19/2017 Time Performed: 12:15:32 PTAGE: 41 years EKG: Sinus rhythm LOW QRS VOLTAGE IN PRECORDIAL LEADS POSSIBLE ANTERIOR MYOCARDIAL INFARCTION Compared to prior tracin g no significant change BORDERLINE ECG PREVIOUS TRACING : 01/14/2017 17.08 DOCTOR: Jayce Hawk Interpretating Date/Time 07/20/2017 09:20:35
== END 2017-07-19 15:30 | disposition home or self-care (01) ==
LOC: PHED 11:44
DX: E11.65 Type 2 diabetes mellitus with hyperglycemia (principal); Z79.4 Long term (current) use of insulin; E03.9 Hypothyroidism, unspecified; J45.909 Unspecified asthma, uncomplicated; F32.9 Major depressive disorder, single episode, unspecified; E78.00 Pure hypercholesterolemia, unspecified
CPT/HCPCS: 80053; 81001; 82010; 82805; 83605; 84439; 84443; 84481; 85025; 93005; 96361; 96372; 96374; 99284; J1815; J7030

== ENCOUNTER 2017-08-01 20:47 | Emergency (ER) | payer OTHER ==
[~2017-08-01 20:47] MED LIST changes: -AMIT25TA9 PO; -KETO10 PO; +LEVO.125 PO
[2017-08-01 20:50] VITALS: BP 166/91; PULSE 98; RESP 20; TEMP 97.6; O2SAT 99
[2017-08-01 22:30] VITALS: O2SAT 99
--- NOTE | 2017-08-01 23:03 | PD ---
HPI Chief Complaint: Cold / Flu Symptoms Time Seen by Provider: 22:44 Travel History International Travel<30 days: No Contact w/Intl Traveler<30days: No Traveled to known affect area: No History of Present Illness HPI 41 y/o female presents with cough and general ill feeling for the past 3 weeks. She states she tried her son's inhaler but it did not help. She states that she does not smoke cigarettes. She denies any other concurrent complaints including chest pain. She states no specific production. She feels worse when she moves around and coughs. She denies other modifying factors. PFSH Past Medical History Hx Anticoagulant Therapy: No Arthritis: No Asthma: Yes (Exercise-induced) Autoimmune Disease: No Blood Disorders: No Anxiety: Yes Depression: Yes Heart Rhythm Problems: No Cancer: No Cardiovascular Problems: Yes High Cholesterol: Yes Chemotherapy: No Chest Pain: Yes Congestive Heart Failure: No COPD: No Cerebrovascular Accident: No Diabetes: Yes Patient Takes Glucophage: No Diminished Hearing: No Endocrine: Yes Gastrointestinal Disorders: Yes (IBS) GERD: No Glaucoma: No Genitourinary: Yes Headaches: Yes Hepatitis: No Hiatal Hernia: No Hypertension: No Immune Disorder: No Inguinal Hernia: Yes (Left ) Implanted Vascular Access Dvce: No Medical other: Yes (GERD) Musculoskeletal: No Neurologic: Yes Psychiatric: Yes (Borderline personality disorder) Reproductive: Yes Respiratory: Yes Immunizations Current: Yes Migraines: No Renal Failure: No Seizures: No Sleep Apnea: No Thyroid Disease: Yes (Hypo-) Ulcer: No PNEUMOCCOCAL Vaccine (Year): 2 ?: Not Menopausal: No : 2 Para: 2 Ovarian Cysts: Yes Past Surgical History Abdominal Surgery: Yes (Hernia repair) AICD: No Arteriovenous Shunt: No Cardiac Surgery: No Section: Yes (X's 2) Cholecystectomy: Yes Ear Surgery: No Endocrine Surgery: No Eye Surgery: No Genitourinary Surgery: No Gynecologic Surgery: Yes (Endometrial ablation) Hysterectomy: No Insulin Pump: No Joint Replacement: No Neurologic Surgery: No Oral Surgery: Yes ([place] teeth) Pacemaker: No Thoracic Surgery: No Other Surgery: Yes (HERNIA REPAIR) Social History Alcohol Use: Yes (SOCIAL) Tobacco Use: No (Quit 10 years ago) Substance Use: No Allergies-Medications (Allergen,Severity, Reaction): Coded Allergies: Sulfa (Sulfonamide Antibiotics) (Unverified Allergy, Severe, HIVES AND NERVOUS FEELING, 07/19/17) penicillin G (Unverified Allergy, Severe, NERVOUS FEELING AND SWELLING, ) shrimp (Unverified Allergy, Severe, MOUTH QUINTANILLA, 07/19/17) lorazepam (Unverified Allergy, Unknown, UNKNOWN, 07/19/17) morphine (Unverified Adverse Reaction, Severe, LETHARGIC, 07/19/17) Reported Meds & Prescriptions Reported Meds & Active Scripts Active Synthroid (Levothyroxine Sodium) 125 Mcg Tab 125 Mcg PO DAILY Reported Topamax (Topiramate) 100 Mg Tab 300 Mg PO DAILY Klonopin (Clonazepam) 2 Mg Tab 1 Mg PO BID Glimepiride 4 Mg Tab 4 Mg PO BID Take with breakfast or first main meal Zoloft (Sertraline HCl) 100 Mg Tab 100 Mg PO BID Review of Systems Except as stated in HPI: all other systems reviewed are Neg Physical Exam Narrative General: No apparent distress, well appearing ENT: Posterior oropharyngx clear without exudate or erythema, external auditory canals are normal. Bilateral TM clear Neck: Neck is supple, no meningeal signs, trachea is midline Cardiovascular: Regular rate and rhythm Lungs: No increased respiratory effort noted, CTA bilaterally Extremities: No edema Neuro: Awake, motor and sensation grossly intact, normal speech SKIN: Warm and dry. HEAD: Normocephalic and atraumatic. EYES: No injection or drainage. NECK: Supple, trachea midline. Data Data Last Documented VS Vital Signs Date Time Temp Pulse Resp B/P (MAP) Pulse Ox O2 Delivery O2 Flow Rate FiO2 08/02/17 00:31 08/01/17 22:30 99 Room Air 08/01/17 20:50 97.6 98 20 Orders Orders Chest, Pa & Lat (08/01/17 ) Blood Glucose (08/01/17 23:28) MDM Medical Decision Making Medical Screen Exam Complete: Yes Emergency Medical Condition: Yes Medical Record Reviewed: Yes (pmh confirmed) Interpretation(s) cxr no acute Differential Diagnosis uri, pneumonia, allergies Narrative Course will check cxr and reevaluate cxr no acute, patient is not sure what her sugar was recently. Will check Accu- Chek Glucose here 479. Advised blood work and urinalysis and patient states she recently had that done and doesn't want to stay for that. AMA: The risks of leaving against medical advice without further evaluation treatment were discussed with the patient. These risks include cardiac dysfunction, cardiac dysrhythmia, possible heart attack, possible stroke or . The patient indicated understanding of these risks and appeared to have the capacity to make this decision. Diagnosis Primary Impression: Diabetes mellitus type 1, uncontrolled Additional Impression: Upper respiratory infection Qualified Codes: J06.9 - Acute upper respiratory infection, unspecified Patient Instructions: General Instructions Additional Instructions: take your insulin as you should, follow with primary tommorrow Med/Other Pt SpecificInfo: No Change to Meds Disposition: 07 AGAINST MEDICAL ADVICE Condition: Stable Grisel Luis MD Aug 01, 2017 23:03
--- NOTE | 2017-08-01 23:15 | RADRPT ---
EXAM DATE/TIME: 08/01/2017 23:02 [facility] COMPARISON: CHEST PA & LAT, October 22, 2014, 8:41. INDICATIONS : Cough x 2 weeks. MEDICAL HISTORY : Diabetes mellitus type II. SURGICAL HISTORY : Cholecystectomy. section. ENCOUNTER: Initial ACUITY: 2 weeks PAIN SCORE: 7/10 LOCATION: Bilateral chest FINDINGS: PA and lateral views of the chest demonstrate a normal-sized cardiac silhouette. There is no effusion , consolidation, or pneumothorax. The bones and soft tissues demonstrate no acute abnormality. There are degenerative changes of the thoracic spine. CONCLUSION: No acute cardiopulmonary abnormality is identified. Aftab Kingsley MD on August 01, 2017 at 23:13 Board Certified Radiologist. This report was verified electronically.
== END 2017-08-01 23:58 | disposition left against medical advice (07) ==
LOC: NEPE 20:47
DX: E10.65 Type 1 diabetes mellitus with hyperglycemia (principal); J06.9 Acute upper respiratory infection, unspecified; Z79.84 Long term (current) use of oral hypoglycemic drugs
CPT/HCPCS: 71020; 99283

== ENCOUNTER 2017-10-31 17:57 | Emergency (ER) | payer OTHER ==
[~2017-10-31] VITALS: Ht 162.6 cm; Wt 83.1 kg
[~2017-10-31 17:57] MED LIST changes: -LEVO150T7 PO
[2017-10-31 18:00] VITALS: BP 154/98; PULSE 94; RESP 16; TEMP 98.9; O2SAT 98
[2017-10-31 18:38] LABS: AUTOMATED NEUTROPHIL # 5.3 TH/MM3 (1.8-7.7); BASOPHIL # 0.3 TH/MM3 (0-0.2); BASOPHIL % 2.8 % (0.0-2.0); EOSINOPHIL # 0.2 TH/MM3 (0-0.4); EOSINOPHIL % 2.1 % (0.0-4.0); HEMATOCRIT 45.6 % (35.0-46.0); HEMOGLOBIN 15.5 GM/DL (11.6-15.3); LYMPH % 37.1 % (9.0-44.0); LYMPHOCYTE # 3.8 TH/MM3 (1.0-4.8); MEAN CELL VOLUME 93.6 FL (80.0-100.0); MEAN CORPUSCULAR HEMOGLOBIN 31.7 PG (27.0-34.0); MEAN CORPUSCULAR HGB CONC 33.9 % (32.0-36.0); MEAN PLATELET VOLUME 8.1 FL (7.0-11.0); MONO % 6.6 % (0.0-8.0); MONOCYTE # 0.7 TH/MM3 (0-0.9); NEUT % 51.4 % (16.0-70.0); PLATELET COUNT 490 TH/MM3 (150-450); RED BLOOD COUNT 4.88 MIL/MM3 (4.00-5.30); RED CELL DISTRIBUTION WIDTH 12.2 % (11.6-17.2); WHITE BLOOD COUNT 10.3 TH/MM3 (4.0-11.0)
[2017-10-31] MEDS ORDERED: SODIUM CHLOR 0.9% 1000 ML INJ 1,000 ML IV SCH (18:38)
[2017-10-31 18:39] LABS: BILIRUBIN, URINE NEG (NEG); BLOOD, URINE NEG (NEG); GLUCOSE,URINE 1000 OR GREATER mg/dL (NEG); KETONE, URINE TRACE mg/dL (NEG); NITRITE,URINE NEG (NEG); PH, URINE 6.5 (5.0-8.5); URINE COLOR YELLOW (YELLW/STRAW); URINE LEUKOCYTE ESTERASE NEG (NEG)
[2017-10-31 18:43] LABS: BACTERIA, URINE RARE /hpf; RBC, URINE 0-2 /hpf (0-3); SQUAMOUS EPITHELIAL CELL URINE 0-5 /hpf (0-5); WBC, URINE 0-2 /hpf (0-5)
[2017-10-31] MEDS ORDERED: INSU100V2 SQ (18:44)
[2017-10-31] MEDS ORDERED: SODIUM CHLORIDE 0.9% FLUSH 10 ML FLUSH IV FLUSH PRN (18:45)
[2017-10-31 18:50] LABS: CHLORIDE 106 MEQ/L (98-107); SODIUM (NA) 137 MEQ/L (136-145)
[2017-10-31 18:54] LABS: CALCIUM 8.7 MG/DL (8.5-10.1)
[2017-10-31 18:55] LABS: ALBUMIN 3.7 GM/DL (3.4-5.0); BICARBONATE 21.3 MEQ/L (21.0-32.0); BLOOD UREA NITROGEN 7 MG/DL (7-18); GLUCOSE,RANDOM 382 MG/DL (74-106)
--- NOTE | 2017-10-31 18:56 | PD ---
HPI Chief Complaint: Diabetic Time Seen by Provider: 18:35 Travel History International Travel<30 days: No Contact w/Intl Traveler<30days: No Traveled to known affect area: No History of Present Illness HPI Patient was seen and examined in the presence of a nurse at all times This is a 41-year-old female with a history of poorly controlled diabetes who presents for elevated blood sugar. She states that she ran out of her Glimepiride a few weeks ago and has had elevated blood sugar since then. She has felt dehydrated. She also has run out of her Synthroid. She states that she has not been using her sliding scale insulin and describes herself as noncompliance. She denies recent fever, vomiting, diarrhea, abdominal pain. Symptoms are mild in severity. Onset gradual. Aggravated by being out of medication. PFSH Past Medical History Hx Anticoagulant Therapy: No Arthritis: No Asthma: Yes (Exercise-induced) Autoimmune Disease: No Blood Disorders: No Anxiety: Yes Depression: Yes Heart Rhythm Problems: No Cancer: No Cardiovascular Problems: Yes (htn takes no meds) High Cholesterol: Yes Chemotherapy: No Chest Pain: Yes Congestive Heart Failure: No COPD: No Cerebrovascular Accident: No Diabetes: Yes (type 1) Patient Takes Glucophage: No Diminished Hearing: No Endocrine: Yes Gastrointestinal Disorders: Yes (IBS) GERD: No Glaucoma: No Genitourinary: Yes Headaches: Yes Hepatitis: No Hiatal Hernia: No Hypertension: No Immune Disorder: No Inguinal Hernia: Yes (Left ) Implanted Vascular Access Dvce: No Medical other: Yes (GERD) Musculoskeletal: No Neurologic: Yes Psychiatric: Yes (Borderline personality disorder) Reproductive: Yes Respiratory: Yes Immunizations Current: Yes Migraines: No Renal Failure: No Seizures: No Sleep Apnea: No Thyroid Disease: Yes (Hypo-) Ulcer: No PNEUMOCCOCAL Vaccine (Year): 2 ?: Not LMP: no menses Menopausal: No : 2 Para: 2 Ovarian Cysts: Yes Past Surgical History Abdominal Surgery: Yes (Hernia repair) AICD: No Arteriovenous Shunt: No Cardiac Surgery: No Section: Yes (X's 2) Cholecystectomy: Yes Ear Surgery: No Endocrine Surgery: No Eye Surgery: No Genitourinary Surgery: No Gynecologic Surgery: Yes (Endometrial ablation) Hysterectomy: No Insulin Pump: No Joint Replacement: No Neurologic Surgery: No Oral Surgery: Yes ([place] teeth) Pacemaker: No Thoracic Surgery: No Other Surgery: Yes (HERNIA REPAIR) Social History Alcohol Use: Yes (SOCIAL) Tobacco Use: No (Quit 10 years ago) Substance Use: No Allergies-Medications (Allergen,Severity, Reaction): Coded Allergies: Sulfa (Sulfonamide Antibiotics) (Unverified Allergy, Severe, HIVES AND NERVOUS FEELING, 10/31/17) penicillin G (Unverified Allergy, Severe, NERVOUS FEELING AND SWELLING, 10/31/17) shrimp (Unverified Allergy, Severe, MOUTH QUINTANILLA, 10/31/17) lorazepam (Unverified Allergy, Unknown, UNKNOWN, 10/31/17) morphine (Unverified Adverse Reaction, Severe, LETHARGIC, 10/31/17) Reported Meds & Prescriptions Reported Meds & Active Scripts Active Synthroid (Levothyroxine Sodium) 125 Mcg Tab 125 Mcg PO DAILY Glimepiride 4 Mg Tab 4 Mg PO BID Take with breakfast or first main meal Reported Humulin R Inj (Insulin Human Regular) 1,000 Unit/10 Ml Vial 1 Units SQ ONCE Topamax (Topiramate) 100 Mg Tab 300 Mg PO DAILY Klonopin (Clonazepam) 2 Mg Tab 1 Mg PO BID Zoloft (Sertraline HCl) 100 Mg Tab 100 Mg PO BID Review of Systems Except as stated in HPI: all other systems reviewed are Neg Physical Exam Narrative GENERAL: Alert, well nourished, well appearing patient resting on the bed in no acute distress. Vital Signs reviewed SKIN: Focused skin assessment warm/dry. HEAD: Atraumatic. Normocephalic. EYES: Pupils equal and round. No scleral icterus. No injection or drainage. ENT: No nasal bleeding or discharge. Mucous membranes pink and moist. NECK: Trachea midline. No JVD. Spontaneous, painless full range of motion with no meningismus CARDIOVASCULAR: Regular rate and rhythm. No murmur appreciated. Extremities warm and well perfused with bounding peripheral pulses RESPIRATORY: No accessory muscle use. Clear to auscultation. Breath sounds equal bilaterally. Breathing easily and speaking in full sentences GASTROINTESTINAL: Abdomen soft, non-tender, nondistended. Normal bowel sounds. No rigid, rebound, guarding MUSCULOSKELETAL: No obvious deformities. No clubbing. No cyanosis. No edema. Compartments are soft NEUROLOGICAL: Awake and alert. No obvious cranial nerve deficits. Motor grossly within normal limits. Normal speech. Sensation intact. Normal gait PSYCHIATRIC: Appropriate mood and affect; insight and judgment normal. Data Data Last Documented VS Vital Signs Date Time Temp Pulse Resp B/P (MAP) Pulse Ox O2 Delivery O2 Flow Rate FiO2 10/31/17 19:05 85 16 149/83 (105) 95 Room Air 10/31/17 18:00 98.9 Orders Orders Comprehensive Metabolic Panel (10/31/17 18:09) Complete Blood Count With Diff (10/31/17 18:09) Urinalysis - C+S If Indicated (10/31/17 18:09) Ed Urine Pregnancytest Poc (10/31/17 18:27) Iv Access Insert/Monitor (10/31/17 18:38) Sodium Chlor 0.9% 1000 Ml Inj (Ns 1000 M (10/31/17 18:38) Sodium Chloride 0.9% Flush (Ns Flush) (10/31/17 18:45) Electrocardiogram (10/31/17 18:45) Chest, Pa & Lat (10/31/17 18:45) Ckmb (Isoenzyme) Profile (10/31/17 18:20) Troponin I (10/31/17 18:20) Thyroid Stimulating Hormone (10/31/17 18:20) Insulin Human Regular Inj (Novolin R Inj (10/31/17 20:15) Labs Laboratory Tests Test 10/31/17 18:15 10/31/17 18:20 Urine Color YELLOW Urine Turbidity CLEAR Urine pH 6.5 Urine Specific [place] 1.028 Urine Protein NEG mg/dL Urine Glucose (UA) 1000 OR GREATER mg/dL Urine Ketones TRACE mg/dL Urine Occult Blood NEG Urine Nitrite NEG Urine Bilirubin NEG Urine Urobilinogen 0.2 MG/DL Urine Leukocyte Esterase NEG Urine RBC 0-2 /hpf Urine WBC 0-2 /hpf Urine Squamous Epithelial Cells 0-5 /hpf Urine Bacteria RARE /hpf Urine Yeast (Budding) FEW Microscopic Urinalysis Comment CULT NOT INDICATED White Blood Count 10.3 TH/MM3 Red Blood Count 4.88 MIL/MM3 Hemoglobin 15.5 GM/DL Hematocrit 45.6 % Mean Corpuscular Volume 93.6 FL Mean Corpuscular Hemoglobin 31.7 PG Mean Corpuscular Hemoglobin Concent 33.9 % Red Cell Distribution Width 12.2 % Platelet Count 490 TH/MM3 Mean Platelet Volume 8.1 FL Neutrophils (%) (Auto) 51.4 % Lymphocytes (%) (Auto) 37.1 % Monocytes (%) (Auto) 6.6 % Eosinophils (%) (Auto) 2.1 % Basophils (%) (Auto) 2.8 % Neutrophils # (Auto) 5.3 TH/MM3 Lymphocytes # (Auto) 3.8 TH/MM3 Monocytes # (Auto) 0.7 TH/MM3 Eosinophils # (Auto) 0.2 TH/MM3 Basophils # (Auto) 0.3 TH/MM3 CBC Comment DIFF FINAL Differential Comment Blood Urea Nitrogen 7 MG/DL Creatinine 0.78 MG/DL Random Glucose 382 MG/DL Total Protein 7.8 GM/DL Albumin 3.7 GM/DL Calcium Level 8.7 MG/DL Alkaline Phosphatase 117 U/L Aspartate Amino Transf (AST/SGOT) 22 U/L Alanine Aminotransferase (ALT/SGPT) 25 U/L Total Bilirubin 0.4 MG/DL Sodium Level 137 MEQ/L Potassium Level 3.5 MEQ/L Chloride Level 106 MEQ/L Carbon Dioxide Level 21.3 MEQ/L Anion Gap 10 MEQ/L Estimat Glomerular Filtration Rate 81 ML/MIN Total Creatine Kinase 57 U/L Troponin I LESS THAN 0.02 NG/ML Thyroid Stimulating Hormone 3rd Gen 4.040 uIU/ML MDM Medical Decision Making Medical Screen Exam Complete: Yes Emergency Medical Condition: Yes Medical Record Reviewed: Yes Interpretation(s) EKG shows sinus rhythm with rate of 84. No acute ST elevation Chest x-ray shows minimal left basilar atelectasis Laboratory Tests Test 10/31/17 18:15 10/31/17 18:20 Urine Color YELLOW Urine Turbidity CLEAR Urine pH 6.5 Urine Specific [place] 1.028 Urine Protein NEG mg/dL Urine Glucose (UA) 1000 OR GREATER mg/dL Urine Ketones TRACE mg/dL Urine Occult Blood NEG Urine Nitrite NEG Urine Bilirubin NEG Urine Urobilinogen 0.2 MG/DL Urine Leukocyte Esterase NEG Urine RBC 0-2 /hpf Urine WBC 0-2 /hpf Urine Squamous Epithelial Cells 0-5 /hpf Urine Bacteria RARE /hpf Urine Yeast (Budding) FEW Microscopic Urinalysis Comment CULT NOT INDICATED White Blood Count 10.3 TH/MM3 Red Blood Count 4.88 MIL/MM3 Hemoglobin 15.5 GM/DL Hematocrit 45.6 % Mean Corpuscular Volume 93.6 FL Mean Corpuscular Hemoglobin 31.7 PG Mean Corpuscular Hemoglobin Concent 33.9 % Red Cell Distribution Width 12.2 % Platelet Count 490 TH/MM3 Mean Platelet Volume 8.1 FL Neutrophils (%) (Auto) 51.4 % Lymphocytes (%) (Auto) 37.1 % Monocytes (%) (Auto) 6.6 % Eosinophils (%) (Auto) 2.1 % Basophils (%) (Auto) 2.8 % Neutrophils # (Auto) 5.3 TH/MM3 Lymphocytes # (Auto) 3.8 TH/MM3 Monocytes # (Auto) 0.7 TH/MM3 Eosinophils # (Auto) 0.2 TH/MM3 Basophils # (Auto) 0.3 TH/MM3 CBC Comment DIFF FINAL Differential Comment Blood Urea Nitrogen 7 MG/DL Creatinine 0.78 MG/DL Random Glucose 382 MG/DL Total Protein 7.8 GM/DL Albumin 3.7 GM/DL Calcium Level 8.7 MG/DL Alkaline Phosphatase 117 U/L Aspartate Amino Transf (AST/SGOT) 22 U/L Alanine Aminotransferase (ALT/SGPT) 25 U/L Total Bilirubin 0.4 MG/DL Sodium Level 137 MEQ/L Potassium Level 3.5 MEQ/L Chloride Level 106 MEQ/L Carbon Dioxide Level 21.3 MEQ/L Anion Gap 10 MEQ/L Estimat Glomerular Filtration Rate 81 ML/MIN Total Creatine Kinase 57 U/L Troponin I LESS THAN 0.02 NG/ML Thyroid Stimulating Hormone 3rd Gen 4.040 uIU/ML Differential Diagnosis Diabetic hyperglycemia, dehydration, DKA, hypothyroid, medical noncompliance, electrolyte abnormality Narrative Course IV access was established. Labs, chest x-ray were performed. Patient was given 1 L normal saline bolus and regular insulin.. She is not in DKA. I counseled her extensively regarding importance of medical compliance. We will refill her glimepiride and Synthroid. She has an appointment to follow-up with her primary physician in the beginning of next week. She understands she may require further testing and treatment as an outpatient. She understands strict return indications. She is comfortable with this plan and eager to be discharged. Diagnosis Primary Impression: Hyperglycemia Referrals: Primary Care Physician 1 day Patient Instructions: Diabetic Hyperglycemia (ED), General Instructions Additional Instructions: Follow a strict diabetic diet. Continue sliding scale insulin as directed. Take Glimepiride as directed. Follow up with primary physician in 1-4 days for recheck. Med/Other Pt SpecificInfo: Prescription(s) given Scripts Levothyroxine (Synthroid) 125 Mcg Tab 125 MCG PO DAILY for Thyroid, #30 TAB 2 Refills Prov: Elizabeth Evans MD 10/31/17 Glimepiride (Glimepiride) 4 Mg Tab 4 MG PO BID for Blood Sugar Management, #30 TAB 0 Refills Take with breakfast or first main meal Prov: Elizabeth Evans MD 10/31/17 Disposition: 01 DISCHARGE HOME Condition: Stable Elizabeth Evans MD Oct 31, 2017 18:56
[2017-10-31 18:58] LABS: ALT (GPT) 25 U/L (10-53); AST (GOT) 22 U/L (15-37); CREATININE 0.78 MG/DL (0.50-1.00); GLOMERULAR FILTRATION RATE 81 ML/MIN (>89)
[2017-10-31 19:00] LABS: TOTAL BILIRUBIN ADULT 0.4 MG/DL (0.2-1.0); TOTAL PROTEIN 7.8 GM/DL (6.4-8.2)
[2017-10-31 19:01] LABS: ALKALINE PHOSPHATASE 117 U/L (45-117)
[2017-10-31 19:05] VITALS: BP 149/83; PULSE 85; RESP 16; O2SAT 95
[2017-10-31] MEDS ORDERED: LEVO.125 PO (19:07)
[2017-10-31] MEDS ORDERED: GLIM4TAB PO (19:07)
[2017-10-31 19:14] LABS: TROPONIN I LESS THAN 0.02 NG/ML (0.02-0.05)
--- NOTE | 2017-10-31 20:06 | RADRPT ---
EXAM DATE/TIME: 10/31/2017 19:27 [facility] COMPARISON: CHEST PA & LAT, August 01, 2017, 23:02. INDICATIONS : Chest heaviness and shortness of breath. MEDICAL HISTORY : Diabetes mellitus type II. SURGICAL HISTORY : Cholecystectomy. section. ENCOUNTER: Initial ACUITY: 1 day PAIN SCORE: 3/10 LOCATION: Bilateral chest FINDINGS: Minimal atelectasis is noted within left lung base. The heart is normal. The pulmonary vascular patte rn is normal. The right lung is clear. CONCLUSION: Minimal left basilar atelectasis. Miguel Angel Hoyt MD on October 31, 2017 at 20:05 Board Certified Radiologist. This report was verified electronically.
[2017-10-31] MEDS ORDERED: INSULIN HUMAN REGULAR 1,000 UNITS/10 ML VIAL SQ ONE (20:15)
[2017-10-31 21:05] VITALS: BP 141/95; PULSE 77; RESP 16; O2SAT 97
--- NOTE | 2017-11-01 08:56 | EKG ---
Date Performed: 10/31/2017 Time Performed: 18:51:34 PTAGE: 41 years EKG: Sinus rhythm POSSIBLE ANTERIOR MYOCARDIAL INFARCTION BORDERLINE ECG PREVIOUS TRACING : 07/19/2017 12.15 Since the prior tracing, there has been no significant king DOCTOR: Yue Tavares Interpretating Date/Time 11/01/2017 08:54:05
== END 2017-10-31 21:18 | disposition home or self-care (01) ==
LOC: PHED 17:57
DX: E10.65 Type 1 diabetes mellitus with hyperglycemia (principal); R94.31 Abnormal electrocardiogram [ECG] [EKG]; J45.909 Unspecified asthma, uncomplicated; F32.9 Major depressive disorder, single episode, unspecified; I10 Essential (primary) hypertension; E78.00 Pure hypercholesterolemia, unspecified; Z88.8 Allergy status to other drugs, medicaments and biological substances; Z88.2 Allergy status to sulfonamides; Z88.5 Allergy status to narcotic agent; Z88.0 Allergy status to penicillin; Z91.013 Allergy to seafood
CPT/HCPCS: 71046; 80053; 81001; 82550; 84443; 84484; 84703; 85025; 93005; 96360; 96372; 99285; J1815; J7030